=== PATIENT | male | born 1935 | race Caucasian/White ===

== ENCOUNTER 2023-01-24 13:45 | Outpatient (RCR) | payer MEDICARE, SELFPAY | END 2023-04-13 12:42 | disposition home or self-care (01) | PROVIDERS: PCP Family Medicine; Visit Provider Physician Assistant Medical | DX: R26.89 Other abnormalities of gait and mobility (principal); R29.6 Repeated falls; Z51.89 Encounter for other specified aftercare | CPT/HCPCS: 97110; 97112; 97140; 97162 ==

== ENCOUNTER 2024-09-14 07:26 | Outpatient (CLI) | payer MEDICARE, SELFPAY | END 2024-09-14 07:27 | disposition home or self-care (01) | LOC: AMB 09-27 07:31 | PROVIDERS: PCP Family Medicine; Visit Provider Family Medicine | DX: S39.92XA Unspecified injury of lower back, initial encounter (principal); W10.9XXA Fall (on) (from) unspecified stairs and steps, initial encounter; Y92.9 Unspecified place or not applicable | CPT/HCPCS: A0425; A0433 ==

== ENCOUNTER 2024-09-14 08:08 | Emergency (ER) | payer MEDICARE, SELFPAY ==
[2024-09-14] VITALS (24 sets, daily range): BP systolic 88–151; BP diastolic 57–106; PULSE 65–86; RESP 18; TEMP 36.3; O2SAT 84–99; BMI 27.4
--- OUTSIDE RECORDS SUMMARY | 2024-09-14 08:10 | XMS_ITS | Continuity of Care Document ---
Author Name [facility] Organization [facility] Care Team Providers Care Liaison Planner Name Role Phone [facility] Unavailable Unavailable Problems Combined list of problems from Department of Defense and Veterans Affairs facilities. It does not include entries that were removed or entered in error. Problem Status Onset Date Problem Type Date of Resolution Comments Source AAA screen nl Active Condition [facility] Bilat carotid US: neg 10/10 Active Condition [facility] C-scopy outside 12/07 per pt: polyps removed: told me to RTC 3 yr Active Condition Oct 20, 2007 Entered By: JUDE COUGHLIN Comment: Declined referral 2008 Entered By: JUDE COUGHLIN Comment: 10-14 declined referral [facility] Carpal Tunnel Syndrome Active Condition Aug 26, 2006 Entered By: JUDE COUGHLIN Comment: RTMay 2006 Entered By: JUDE COUGHLIN Comment: s/p surg 12-10 [facility] Coronary Artery Disease Active Condition May 22, 2003 Entered By: CASPER DIAS I Comment: s/p stenting in 2009 Entered By: JUDE COUGHLIN Comment: S/P STENTING -2009 [facility] DECLINED ZOSTER VACCINE -2010 Active Condition Oct 13, 2012 Entered By: JUDE COUGHLIN Comment: GOT SHINGLES RASH -2012; rx outside [facility] Degenerative Joint Disease Active Condition Oct 01, 2005 Entered By: JUDE COUGHLIN Comment: seeing outside ortho: s/p injnx x 1 left knee: no helpNov 02, 2006 Entered By: JUDE COUGHLIN Comment: rt wrist DJD: 2-7 Ortho plans surgMay 2006 Entered By: JUDE COUGHLIN Comment: 12-10 left knee US: no maradiaga's cyst;January 27, 2007 Entered By: JUDE COUGHLIN Comment: 01-09: DECLINED referral for knee surgMay 2006 Entered By: JUDE COUGHLIN Comment: RT wrist surg and CTS SURG 2008 Entered By: JUDE COUGHLIN Comment: 2006 Rt wrist fusionFeb 2009 Entered By: JUDE COUGHLIN Comment: 2008: Bilat TKANov 2020 Entered By: JUDE COUGHLIN Comment: Rt CUATE [facility] Depression Active Condition [facility] Disorder of Shoulder Region (SCT [id number]) Active Condition Aug 31, 2017 Entered By: JUDE COUGHLIN Comment: Left shoulder rotator cuff repair outside [facility] DJD, Wrist Active Condition [facility] Hyperlipidemia Active Condition [facility] Insulin Resistance Active Condition [facility] LDL > 100: pt declined further incr in Statin dose Active Condition January 27, 2007 Entered By: JUDE COUGHLIN Comment: 5-07 Pt declined statin increase [facility] Lumbar compression fx 2008: Active Condition Oct 10, 2009 Entered By: JUDE COUGHLIN Comment: Vertebroplasty done outside [facility] 2009 Entered By: JUDE COUGHLIN Comment: DEXA: NORMAL [facility] ONLY [facility] 2011 Active Condition Nov 12, 2011 Entered By: JUDE COUGHLIN Comment: PCP In [facility] in [place]: Dr. Mistry 2011 Entered By: JUDE COUGHLIN Comment: significant care fragmentation [facility] WANTS yearly PSA Active Condition Oct 20, 2007 Entered By: JUDE COUGHLIN Comment: declined rectal 2-08 [facility] Diagnosis: ICD-10-CM H90.3 Sensorineural hearing loss, bilateral Active Diagnosis [facility] Diagnosis: ICD-10-CM Z01.118 Encntr for exam of ears and hearing w oth abnormal findings Active Diagnosis [facility] Medications Combined list of outpatient medications from Department of Defense and [facility] Affairs facilities.Medications provided include 1) outpatient medications from the last 15 months, and 2) patient-reported medications. Medication Details Route Status Patient Instructions Prescription Expires Prescription Number Last Dispense Date Ordering Provider Order Date Order Qty Source ASPIRIN 81MG TAB,EC TAKE ONE TABLET BY MOUTH EVERY DAY ORAL ACTIVE JUDE COUGHLIN 2010 [facility] ECHINACEA CAP/TAB TAKE BY MOUTH QWEEK ORAL ACTIVE JUDE COUGHLIN 2007 [facility] FLAXSEED MISCELLANEO US USE MOUTH QWEEK ORAL ACTIVE JUDE COUGHLIN 2007 [facility] FOLIC ACID 1MG TAB TAKE ONE TABLET BY MOUTH QWEEK ORAL ACTIVE CED,JUDE N 2007 [facility] GARLIC OIL CAP,ORAL TAKE BY MOUTH QWEEK ORAL ACTIVE CED,JUDE N 2007 [facility] MAGNESIUM 70MG TAB,EC TAKE TWO TABLETS BY MOUTH QWEEK ORAL ACTIVE CED,JUDE N 2007 [facility] OXYCODONE TAB TAKE ACTIVE CED,JUDE N 2019 [facility] ZINC GLUCONATE 50MG TAB TAKE ONE TABLET BY MOUTH QWEEK ORAL ACTIVE CED,JUDE N 2007 [facility] Allergies, Adverse Reactions, Alerts Combined list of allergies from Department of [facility] and [facility] Affairs facilities. It does not include entries that were removed or entered in error. Substance Category Reaction Severity Reaction type Status Date Reported Comments Source ACETAMINOPHEN Propensity to adverse reactions to drug (finding) Nausea and vomiting active 7 [facility] ACETAMINOPHEN WITH CODEINE Propensity to adverse reactions to drug (finding) GI REACTION active 3 [facility] MORPHINE Propensity to adverse reactions to drug (finding) Drowsy active 7 [facility] SULFA DRUGS Propensity to adverse reactions to drug (finding) HIVES active 3 [facility] Immunizations Combined list of available immunizations from the Department of [facility] and [facility] facilities. Immunization Series Date Given Administered By Site Reaction Lot Number CVX Code Drug Air Intercept Controller Supervisor Status Comments Source COVID-19 (Synovex), MRNA, LNP-S, PF, 30 MCG/0.3 ML DOSE 3 2020 208 complet ed PRF; [id number]; 2 [facility] COVID-19 (Synovex), MRNA, LNP-S, PF, 30 MCG/0.3 ML DOSE 2 2020 208 complet ed PFR; [id number]; 1 [facility] COVID-19 (Synovex), MRNA, LNP-S, PF, 30 MCG/0.3 ML DOSE 1 2020 208 complet ed PFR; [id number]; 1 [facility] ZOSTER LIVE 2012 121 complet ed [facility] TDAP 2010 115 complet ed [facility] INFLUENZA, UNSPECIFIED FORMULATION 2006 88 complet ed [facility] TD(ADULT) UNSPECIFIED FORMULATION 2002 139 complet ed [facility] Encounters Combined list of: 1) Encounters from Department of Veterans Affairs facilities going back up to thelast 18 months. 2) Encounters from the Department of [facility] facilities going back up to 280 months. Location Location Details Encounter Type Encounter Number Reason For Visit Attending Provider ADM Date DC Date Status Disposition Source [facility] Outpatient Encounter [id number] 06/01 [facility] [place] [facility] Outpatient Encounter [id number] 06/29 [facility] [place] [facility] [place] [id number] Diagnos is: ICD-10- CM Z01.118 Encntr for exam of ears and hearing w oth abnorma l finding s
MAEGAN NUÑEZ 08/07 [facility] [place] [facility] CONFORMITY EVALUATION [id number] Diagnos is: ICD-10- CM H90.3 Sensori neural hearing loss, bilater al
MAEGAN NUÑEZ 09/11 [facility] Social History Combined list of available smoking, tobacco, and other social history from Department of Defense and [facility] facilities. Social History Type Response Date Comment Sourc e Tobacco smoking status NHIS OK-TOBACCO FORMER USER 07/17/2021 [facility] History of tobacco use OK-TOBACCO QUIT 1 5 YRS OR MORE 07/17/2021 [facility] History of tobacco use OK-TOBACCO FORMER USER 08/21/2019 [facility] History of tobacco use FORMER TOBACCO US ER 7Y OR GREATER 08/31/2017 [facility] History of tobacco use FORMER TOBACCO US ER 7Y OR GREATER 08/11/2016 [facility] History of tobacco use FORMER TOBACCO US ER 7Y OR GREATER 09/09/2015 [facility] History of tobacco use FORMER TOBACCO US ER 7Y OR GREATER 12/23/2006 [facility] Advance Directives List of completed, amended, or rescinded Advance Directives on record at Department of [facility] Affairs facilities. An actual copy of the Directive is not included. Date Advance Directive Provider Source 05/22/2003 ADVANCE DIRECTIVE LAURA MCGHEE [facility]
--- OUTSIDE RECORDS SUMMARY | 2024-09-14 08:10 | XMS_ITS | Encounter Summary ---
Author Name [facility] Organization [facility] Address [address] [place] [address] Care Team Providers Care Boat Fueler Name Role Phone JASBIR PARK Primary Care [...] Name Patient's Relationship to Policy Mclaughlin MEDICA [facility] (WNR) MEDICARE ADVANTAGE [facility] (WNR) Sep 05, 2015 [id number] [phone] SHAHLA ZAPATA PATIENT U-CARE OF [facility] (WNR) MEDICARE (M) MEDIC ARE REPLRehana JEFFERSON Vladimir Sep 05, 2019 REPLACE MENT [id number] SHAHLA ZAPATA PATIENT [facility]-C[facility] OF [facility] (WNR) MEDICARE ADVANTAGE [facility] (WNR) Sep 05, 2019 [id number] SHAHLA ZAPATA PATIENT Selected Encounter This section includes the information on record at [place] for the Encounter. Date/Time Encounter Type Encounter [...] hearing w oth abnormal findings JOSEPH NUÑEZ [facility] Aug 07, 2024 01:16 PM SECONDARY Sensorineural hearing loss, bilateral JOSEPH NUÑEZ [facility] Aug 07, 2024 01:16 PM SECONDARY Tinnitus, bilateral JOSEPH NUÑEZ [facility] Plan of Treatment: Future Appointments (+ 6 months) and Future Tests (+/- 45 days) The Plan of Treatment section includes future care activities for the patient from all [place] [facility]. This section includes future appointments and future orders which are active, pending or scheduled. Future Appointments This section includes appointments that were scheduled to occur 6 months from the date of the Encounter, up to a maximum of 20 appointments. The data comes from all [facility] facilities. Appointment Date/Time Appointment Type Appointme nt Facility Name Sep 11, 2024 12:30 PM AMBULATORY - SURGERY [facility] Social History: Smoking Status (Most current) and Tobacco Use (All prior to encounter date) This section includes the most current, and the historical, smoking and tobacco- related health factors from the [place] facility where the Encounter took place. Current Smoking Status This section includes the most current smoking, or tobacco-related health factor, from the [place] facility where the Encounter took place. Date/Time Current Smoking Status Comment Facil ity Jul 17, 2021 08:15 AM VA-TOBACCO QUIT 15 YRS OR MORE [facility] Tobacco Use History This section includes a history of the smoking, or tobacco-related health factors, that were collected on or before the date of the Encounter. The data comes from the [place] facility where the Encounter took place. Date/Time Smoking Status/Tobacco Use Comment F acility Jul 17, 2021 08:15 AM VA-TOBACCO QUIT 15 YRS OR MORE [facility] Aug 21, 2019 04:14 PM VA-TOBACCO FORMER USER [facility] Aug 21, 2019 04:14 PM VA-TOBACCO QUIT 15 YRS OR MORE [facility] Aug 31, 2017 09:16 AM FORMER TOBACCO USER 7Y OR GREATE R [facility] Aug 11, 2016 08:47 AM FORMER TOBACCO USER 7Y OR GREATE R [facility] Sep 09, 2015 08:56 AM FORMER TOBACCO USER 7Y OR GREATE R [facility] Dec 23, 2006 12:28 PM FORMER TOBACCO USER 7Y OR GREATE R [facility] Advance Directives: All historical and current Section Date Range: From patient's date of to the date document was created. This section includes ALL of a patient's completed or amended [place] Advance and Rescinded Directives. The entries below indicate that a directive exists for the patient, but an actual copy is not included with this document. The data comes from all [place] facilities. Date Advance Directives Provider Source May 22, 2003 ADVANCE DIRECTIVE LAURA MCGHEE [facility] Encounter Notes: All associated encounter notes [...] EVALUATION AND HEARING AID SELECTION, 60 MINUTES: was seen in the clinic today for a comprehensive audiologic evaluation, hearing aid selection, hearing aid service, and counseling. LOCATION OF VISIT (ROOM NUMBER): [facility] The was last seen in this clinic on 03/22/2020. The is NOT Service Connected for Hearing Loss / Tinnitus. Le[place]worth was accompanied by his son, Carlitos. The currently wears the following hearing aids: Hearing aids right/left; Date Fit: Mar Make: PHONAK Model: AUDEO M90 RT LYLA Serial #: [id number] Straightener Hand/Slim Tube Size: Dome/Earmold: SMALL POWER HISTORY: seen with a history of asymmetric sensorineural hearing loss and tinnitus. He reported a decrease in hearing. He denied any change in tinnitus. He denied other otologic symptoms. Patient is eligible for new hearing aids. Le[place]worth stated the current hearing aids are not [...] headphones Reliability: Good RIGHT EAR (Hz) [phone] 6248 1500 2000 3000 4000 6000 8000 Air: See Audiogram Display under Tools / AUDIOLOGY / ROES or see RAQUEL Database Bone: See Audiogram Display under Tools / AUDIOLOGY / ROES or see RAQUEL Database LEFT EAR (Hz) 250 195 694 5856 1500 2000 3000 4000 6000 8000 Air: See Audiogram Display under Tools / AUDIOLOGY / ROES or see RAQUEL Database Bone: See Audiogram Display under Tools / AUDIOLOGY / ROES or see RAQUEL Database - All thresholds are in dB HL * = Masked Threshold SRT: Spondees Right: 35 dB HL Left: 35 dB HL Pure tone results were consistent with speech reception interviewer thresholds. WORD RECOGNITION: / -22 word list RIGHT EAR: 40% Level: 90* dB LEFT EAR: 28% Level: 95* dB SUMMARY: Hearing is somewhat worse as compared to the last examination. RIGHT EAR: Mild sloping to profound sensorineural hearing loss with poor word recognition. LEFT EAR: Mild sloping to profound sensorineural hearing loss with poor word recognition. DISCUSSION: - Results were reviewed with the patient. - Leavenworth continues to be a good candidate for hearing aid use. - Leavenworth has hearing loss that interferes with or restricts communication to the extent that it affects their active participation in the provision of health care services as determined by the lion tamer. AMPLIFICATION: - Different styles/technologies were reviewed with consideration given to veterans listening situations and lifestyle needs. is interested in pursuing similar hearing aids [...] procedure, AU. - Hearing aids ordered: Phonak Auro Mira Energyeo I90-R LYLA hearing aids (champagne, Size 3xM receivers, canal cShells, AOVs, Wax traps, removal strings) were selected and ordered today. - Accessories ordered: TV Connector PLAN: - will be scheduled for a 60-minute hearing aid fitting appointment. Recommended bring his hearing aids to this appointment to have them checked. - Monitor hearing for increase in asymmetry of hearing loss and/or word recognition scores. If otologic symptoms arise or asymmetry increases, ENT referral may be warranted at this time. - PATIENT IS IN AGREEMENT WITH THIS PLAN. /jamison/ MAEGAN NUÑEZ CHIEF LIBRARIAN BRANCH Signed: 08/07/2024 13:31 MAEGAN NUÑEZ [facility]
--- OUTSIDE RECORDS SUMMARY | 2024-09-14 08:10 | XMS_ITS | Encounter Summary ---
Author Name [facility] Address [address] [place] [id number] Care Team Providers Care Portrait Consultant Name Role Phone JASBIR PARK Primary Care [...] Policy Mclaughlin MEDICA [facility] (WNR) MEDICARE ADVANTAGE [facility] (WNR) Sep 05, 2015 [id number] [phone] SHAHLA ZAPATA PATIENT U-CARE OF [facility] (WNR) MEDICARE (M) MEDIC ARE NI [place] Sep 05, 2019 REPLACE MENT [id number] [phone] SHAHLA ZAPATA PATIENT U-CARE OF [facility] (WNR) MEDICARE ADVANTAGE [facility] (WNR) Sep 05, 2019 [id number] [phone] SHAHLA ZAPATA PATIENT Selected Encounter This section includes the information on record at [place] for the Encounter. Date/Time Encounter Type Encounter [...] PRIMARY Sensorineural hearing loss, bilateral JOSEPH NUÑEZ [facility] Sep 11, 2024 01:02 PM SECONDARY Encounter for fitting and adjustment of hearing aid JOSEPH NUÑEZ [facility] Sep 11, 2024 01:02 PM SECONDARY Tinnitus, bilateral JOSEPH NUÑEZ [facility] Social History: Smoking Status (Most current) and Tobacco Use (All prior to encounter date) This section includes the most current, and the historical, smoking and tobacco- related health factors from the [place] facility where the Encounter took place. Current Smoking Status This section includes the most current smoking, or tobacco-related health factor, from the [place] facility where the Encounter took place. Date/Time Current Smoking Status Comment Facil ity Jul 17, 2021 08:15 AM [place]-TOBACCO QUIT 15 YRS OR MORE [facility] Tobacco Use History This section includes a history of the smoking, or tobacco-related health factors, that were collected on or before the date of the Encounter. The data comes from the [place] facility where the Encounter took place. Date/Time Smoking Status/Tobacco Use Comment F acility Jul 17, 2021 08:15 AM VA-TOBACCO QUIT 15 YRS OR MORE [facility] Aug 21, 2019 04:14 PM VA-TOBACCO FORMER USER [facility] Aug 21, 2019 04:14 PM [place]-TOBACCO QUIT 15 YRS OR MORE [facility] Aug 31, 2017 09:16 AM FORMER TOBACCO USER 7Y OR GREATE R [facility] Aug 11, 2016 08:47 AM FORMER TOBACCO USER 7Y OR GREATE R [facility] Sep 09, 2015 08:56 AM FORMER TOBACCO USER 7Y OR GREATE R [facility] Dec 23, 2006 12:28 PM FORMER TOBACCO USER 7Y OR GREATE R [facility] Advance Directives: All historical and current Section Date Range: From patient's date of to the date document was created. This section includes ALL of a patient's completed or amended [place] Advance and Rescinded Directives. The entries below indicate that a directive exists for the patient, but an actual copy is not included with this document. The data comes from all [facility]. Date Advance Directives Provider Source May 22, 2003 ADVANCE DIRECTIVE LAURA MCGHEE [facility] Encounter Notes: All associated encounter notes This [...] AIDS (Right/Left) fit: 09/11/2024 Make: Phonak Model: Chicisimoeo I90-R LYLA Serial Numbers R/L: [id number] / [id number] Senior Estimator/Slim Tube Size: 3M Dome/Earmold: canal cShells ACCESSORIES: TV Connector OTOSCOPY: Both Ears: Free of excessive cerumen. Normal anatomy bilaterally ACTION: Hearing aid(s) are a good physical fit. Feedback test was completed and feedback senior product development manager was activated. Hearing aid(s) were programmed [...] were considered while adjusting the hearing aid(s). Kotlik reported good sound quality and equal balance between ears after adjustments were made. reported a comfortable fit. demonstrated understanding of the new aid(s) and was able to insert the hearing aid(s) appropriately, as well as manipulate the volume control and charging unit. Indicator tones were demonstrated for . Volume control enabled- Synchronized Program button enabled Accessories were paired to the hearing aid(s). Kotlik was educated and counseled on use and features of the device(s) as well as how to connect them. The device(s) were demonstrated in the office to ensure both device functionality and understanding. Kotlik does not want to connect to a cell phone. Kotlik was counseled (30 minutes) regarding: -Full-time hearing aid use and acclimating to amplification -Realistic expectations for hearing aid use -Appropriate communication strategies -How to charge the hearing aids -Location and operation of all controls -Proper care and maintenance -Protecting hearing in high noise levels -Warning about battery ingestion -[facility] and Call Center contact information and services, including the trial period. Prognosis for success is good, given the Veterans response to the hearing aid(s). Hearing aid(s) were issued and supplies were mailed. was provided with a copy of [place] issuance form 2477b. PLAN: Kotlik will return to clinic for service as needed. Patient is in agreement with this plan. /jamison/ MAEGAN NUÑEZ CLIENT SUCCESS DIRECTOR Signed: 09/11/2024 13:02 MAEGAN NUÑEZ [facility]
--- NOTE | 2024-09-14 08:29 | CRLHL7_ITS ---
For Patients: As a result of the Century Cures Act, medical imaging exams and procedure reports are released immediately into your electronic medical record. You may view this report before your referring provider. If you have questions, please contact your health care provider. INDICATION: Fall 1 week ago. TECHNIQUE: CT cervical spine without contrast. COMPARISON: CT cervical spine dated 12/03/2018. FINDINGS: Vertebrae: Alignment is normal. There are no fractures or suspicious bony lesions. Discs and facet joints: There are degenerative disc changes most severe at nd C6-7. There are multilevel degenerative changes in the facets. Extraspinal findings: Partially redemonstrated markedly enlarged left thyroid lobe. IMPRESSION: 1. No sign of acute injury. 2. Multilevel degenerative spondylosis. 3. Redemonstrated markedly enlarged left thyroid lobe. If not previously performed, consider further evaluation with a nonemergent outpatient thyroid ultrasound. Please note that all CT scans at this facility use dose modulation, iterative reconstruction, and/or weight-based dosing when appropriate to reduce radiation dose to as low as reasonably achievable. Dictated by Colt Sutherland MD @ 09/14/2024 9:58:21 AM (Electronically Signed)
--- NOTE | 2024-09-14 08:29 | CRLHL7_ITS ---
For Patients: As a result of the Century Cures Act, medical imaging exams and procedure reports are released immediately into your electronic medical record. You may view this report before your referring provider. If you have questions, please contact your health care provider. INDICATION: Fall 1 week ago. TECHNIQUE: Head CT without contrast. COMPARISON: CT brain dated 12/03/2018. FINDINGS: Moderate diffuse parenchymal volume loss with commensurate ex vacuo dilatation of the ventricles and sulci. There are nonspecific low attenuation white matter changes consistent with chronic microvascular disease. No sign of mass, hemorrhage, or midline shift. Skull base and calvarium: The visualized paranasal sinuses and mastoid air cells demonstrate no acute or significant findings. The visualized orbits are grossly unremarkable. No evident calvarial fractures, allowing for mild motion degradation. Mild scattered scalp swelling. IMPRESSION: No acute findings. Please note that all CT scans at this facility use dose modulation, iterative reconstruction, and/or weight-based dosing when appropriate to reduce radiation dose to as low as reasonably achievable. Dictated by Colt Sutherland MD @ 09/14/2024 9:52:28 AM (Electronically Signed)
--- NOTE | 2024-09-14 08:29 | CRLHL7_ITS ---
For Patients: As a result of the Century Cures Act, medical imaging exams and procedure reports are released immediately into your electronic medical record. You may view this report before your referring provider. If you have questions, please contact your health care provider. INDICATION: Fall 1 week ago TECHNIQUE: CT chest, abdomen and pelvis acquired without contrast. COMPARISON: None. FINDINGS: CHEST: Supraclavicular: Heterogeneous left thyroid nodule measuring 3.7 centimeters (01/16). Cardiovascular structures: Heart size is normal. Superior trailer vessel coronary artery calcification. Aortic annular and mitral annular calcification. Thoracic aorta and main pulmonary artery are normal in caliber. Atherosclerosis of the aorta. Mediastinum and gerson: No mass or adenopathy. Lungs and pleura: Bibasilar atelectasis. No pneumothorax or pleural effusions. Chest wall and axilla: No mass or adenopathy. Bones: Age-indeterminate split fracture of T12. 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 Subacute nondisplaced fractures of the left anterior 2nd, 3rd, 4th, 5th ribs. Deformity of the left clavicular head likely related to prior trauma. Suture anchors in the left humeral head. The humeral head is high-riding and abuts the acromion, consistent with underlying rotator cuff tendinosis. 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 ABDOMEN AND PELVIS: Liver: Unremarkable. Gallbladder and bile ducts: Unremarkable. Pancreas: Unremarkable. Spleen: Unremarkable. Adrenal glands: Unremarkable. Kidneys: Bilateral renal cysts and subcentimeter hypodense lesions, likely cysts. GI tract: No obstruction. Colonic diverticulosis without diverticulitis. Normal appendix. Vascular structures: Moderate atherosclerosis of the aorta and branch vessels. Lymph nodes: Unremarkable. Miscellaneous: Unremarkable. No free air or significant free fluid. Pelvic Organs: Unremarkable. Bones: DISH. Comminuted fracture of the L3 superior endplate. Sequela of L2 vertebroplasty. Partial fusion of the left SI joint. Right total hip arthroplasty. Deformity of the right superior pubic ramus likely related to remote fracture. IMPRESSION: Incomplete burst fracture of L3 (AO spine A3) and split fracture of T12 (AO spine A2). Subacute fractures of the left anterior 2nd-5th ribs. Heterogeneous left thyroid nodule measuring 3.7 centimeters. Consider further evaluation with thyroid ultrasound. Please note that all CT scans at this facility use dose modulation, iterative reconstruction, and/or weight-based dosing when appropriate to reduce radiation dose to as low as reasonably achievable. Dictated by Carlita Lafleur MD @ 09/14/2024 10:08:29 AM (Electronically Signed)
--- NOTE | 2024-09-14 08:31 | ED_ITS ---
HPI - Fall General Chief Complaint: Fall/Minor Trauma Stated Complaint: fall Time Seen by Provider: 09/14/24 08:20 History of Present Illness HPI Narrative: Patient is a E 89-year-old gentleman who is going up the stairs at home today when he fell backwards. He tumbled down the stairs numbering approximately 15. He was unable to get himself up in his pain in his pelvis and low back. He is not certain whether he struck his head or lost consciousness. His was present and found him to be lucid at the scene and not bleeding. Patient has had no nausea no vomiting his pain is mild. He was brought in by EMS and has otherwise been in his usual state of health. Review of his record shows he does not appear to take anticoagulation or anti-platelet agents. Related Data Home Medications ?Medication ?Instructions ?Recorded ?Confirmed atorvastatin 40 mg tablet 40 mg PO QPM 09/14/24 09/14/24 hydrochlorothiazide 12.5 mg tablet 12.5 mg PO DAILY 09/14/24 09/14/24 lisinopril 20 mg tablet 20 mg PO DAILY 09/14/24 09/14/24 Allergies Allergy/AdvReac Type Severity Reaction Status Date / Time No Known Drug Allergies Allergy Verified 09/14/24 08:22 Review of Systems Status of ROS: Reports: 10 or more systems reviewed and unremarkable except as noted in History and below [facility] Medical History Hyperlipidemia ?E78.5 - Hyperlipidemia, unspecified (ICD-10) Hypertension ?I10 - Essential (primary) hypertension (ICD-10) Exam Narrative: Exam Narrative: EXAM Primary survey Airway is open Breathing is nonlabored Circulation is intact No signs of a me disability Back exam without pain to palpation. GENERAL: Patient appears comfortable and well. EYES: No scleral icterus. LYMPH: No supraclavicular or cervical lymphadenopathy. SKIN: Visible skin seen during exam normal or with benign process only. EXT: No dependent lower extremity pedal edema. HEART: Regular rate and rhythm with no murmurs, rubs, or gallops. LUNGS: Clear to auscultation bilaterally with no crackles or wheezes. ABD: Soft, non tender, non distended. PSYCH: Good eye contact, speech is not pressured. Musculoskeletal patient moves all extremities no pain to palpation. No bruising or ecchymosis. Const: Vital Signs, click to edit/add: Vital Signs - 24 hr 09/14/24 08:14 09/14/24 08:39 09/14/24 08:52 Temperature 97.3 F L Pulse Rate 86 Pulse Rate [Right Pulse Oximeter] 86 Respiratory Rate 18 Blood Pressure 151/106 H Blood Pressure [Ri ght Upper Arm] 122/65 Pulse Oximetry 97 85 L Oxygen Delivery Me thod Room Air Oxygen Flow Rate 09/14/24 09:02 09/14/24 09:03 09/14/24 09:06 Temperature Pulse Rate 80 84 84 Pulse Rate [Right Pulse Oximeter] Respiratory Rate Blood Pressure Blood Pressure [Ri ght Upper Arm] Pulse Oximetry 94 95 95 Oxygen Delivery Me thod Oxygen Flow Rate 09/14/24 09:08 09/14/24 09:09 09/14/24 09:27 Temperature Pulse Rate 83 80 79 Pulse Rate [Right Pulse Oximeter] Respiratory Rate Blood Pressure 101/68 Blood Pressure [Ri ght Upper Arm] Pulse Oximetry 92 92 84 L Oxygen Delivery Me thod Nasal Cannula Oxygen Flow Rate 1 09/14/24 09:30 09/14/24 09:31 09/14/24 09:32 Temperature Pulse Rate 77 80 80 Pulse Rate [Right Pulse Oximeter] Respiratory Rate Blood Pressure 97/68 112/67 Blood Pressure [Ri ght Upper Arm] Pulse Oximetry 93 96 93 Oxygen Delivery Me thod Nasal Cannula Nasal Cannula Nasal Cannula Oxygen Flow Rate 1 1 1 09/14/24 09:42 09/14/24 09:45 09/14/24 09:52 Temperature Pulse Rate 79 74 74 Pulse Rate [Right Pulse Oximeter] Respiratory Rate Blood Pressure 104/64 109/58 L Blood Pressure [Ri ght Upper Arm] Pulse Oximetry 89 95 93 Oxygen Delivery Me thod Nasal Cannula Nasal Cannula Nasal Cannula Oxygen Flow Rate 2 2 2 09/14/24 10:00 09/14/24 10:02 09/14/24 10:04 Temperature Pulse Rate 69 71 70 Pulse Rate [Right Pulse Oximeter] Respiratory Rate Blood Pressure 88/57 L 107/64 Blood Pressure [Ri ght Upper Arm] Pulse Oximetry 97 98 97 Oxygen Delivery Me thod Nasal Cannula Nasal Cannula Nasal Cannula Oxygen Flow Rate 2 2 2 Course Course ED Course: Patient is a 89-year-old gentleman who fell down the stairs this morning he presents to the ER where he is complaining of low back pain. CT head neck chest abdomen pelvis pending. CBC CMP UA EKG also pending. Vital Signs Vital signs: Initial Vital Signs Temperature 97.3 F L 09/14/24 08:14 Temperature Source Temporal Artery Scan 09/14/24 08:14 Pulse Rate 86 09/14/24 08:14 Pulse Rhythm Regular 09/14/24 08:14 Respiratory Rate 18 09/14/24 08:14 Blood Pressure 122/65 09/14/24 08:14 Blood Pressure Mean 84 09/14/24 08:14 Blood Pressure Position Supine 09/14/24 08:14 Pulse Oximetry 97 09/14/24 08:14 Oxygen Delivery Method Room Air 09/14/24 08:14 Vital Signs Temperature 97.3 F L 09/14/24 08:14 Pulse Rate 86 09/14/24 08:14 Respiratory Rate 18 09/14/24 08:14 Blood Pressure 122/65 09/14/24 08:14 Pulse Oximetry 97 09/14/24 08:14 Oxygen Delivery Method Room Air 09/14/24 08:14 Temperature 97.3 F L 09/14/24 08:14 Pulse Rate 70 09/14/24 10:04 Respiratory Rate 18 09/14/24 08:14 Blood Pressure 107/64 09/14/24 10:04 Pulse Oximetry 97 09/14/24 10:04 Oxygen Delivery Method Nasal Cannula 09/14/24 10:04 Oxygen Flow Rate 2 09/14/24 10:04 Medications Administered Medications: Discontinued Medications Generic Name Dose Route Start Last Admin Trade Name Freq PRN Reason Stop Dose Admin Hydromorphone HCl 0.5 mg 09/14/24 08:54 09/14/24 08:57 Hydromorphone 0.5 Mg/0.5 Ml Inj IVP 09/14/24 08:55 0.5 mg ONCE ONE Administration MDM - Fall MDM Narrative Medical decision making narrative: Patient is a 9-year-old gentleman who fell down the stairs today. He has pain in his back but no other significant pain. I did do CT head and neck both which were negative. He had a CT of his chest abdomen pelvis showing L3 burst fracture a T12 split fracture and left anterior rib fractures on the ribs 2 through 5. Chronic thyroid nodule also noted. At this time I did immediately call [facility] and discuss the case and patient will be transferred for further evaluation and treatment. He has remained stable during his time with us. He is now resting comfortably. I will given him 0.5 mg of Dilaudid for pain. Lab Data Labs: Lab Results 09/14/24 Range/Units 08:42 WBC 8.58 (4.50-11.00) K/uL RBC 4.48 (4.30-5.90) m/uL Hgb 14.0 (13.5-17.5) gm/dL Hct 42.2 (37.0-53.0) % MCV 94 (80-100) fL MCH 31 (26-34) pg MCHC 33 (32-36) gm/dL RDW Coeff of Teresa 13.0 (11.5-15.5) % Plt Count 234 (140-440) K/uL Neut % (Auto) 73.6 H (42.0-72.0) % Lymph % (Auto) 11.3 L (20-44) % Benson % (Auto) 12.9 H (0.0-11.0) % Eos % (Auto) 1.5 (0.0-7.0) % Baso % (Auto) 0.5 (0.0-3.0) % Neut # (Auto) 6.30 (1.7-7.0) K/uL Lymph # (Auto) 1.00 (0.90-2.90) K/uL Benson # (Auto) 1.10 H (0.00-0.90) K/UL Eos # (Auto) 0.13 (0.00-0.50) K/uL Baso # (Auto) 0.04 (0.00-0.30) K/uL Abs Immat Gran (auto) 0.02 (0.00-0.30) K/uL Imm/Tot Granulo (auto) 0.2 % Sodium 136 (135-149) mmol/L Potassium 3.8 (3.6-5.1) mmol/L Chloride 100 (96-114) mmol/L Carbon Dioxide 30 (20-32) mmol/L Anion Gap 6 L (7-15) mEq/L BUN 29 (7-30) mg/dL Creatinine 0.9 (0.5-1.5) mg/dL Estimated Creat Clear 48.66 Estimated GFR 83 ml/min Glucose 122 H (60-115) mg/dL Calcium 9.4 (8.4-10.6) mg/dL Total Bilirubin 0.9 (0.1-1.5) mg/dL AST 63 H (12-35) U/L ALT 31 (4-50) U/L Alkaline Phosphatase 70 (40-150) U/L Total Protein 6.9 (6.0-8.3) g/dL Albumin 4.1 (3.3-5.0) g/dL Discharge Plan Discharge Clinical Impression: Fall Patient Disposition: [facility] Discharge Location: [facility] Condition: Stable Activity Level: Other Discharge Diet: Other Prescriptions: No Action atorvastatin 40 mg tablet 40 mg PO QPM lisinopril 20 mg tablet 20 mg PO DAILY hydrochlorothiazide 12.5 mg tablet 12.5 mg PO DAILY Follow Up/Referrals: Sherif Valladares MD [Primary Care Provider] -
[2024-09-14 08:47] LABS: Basophils Absolute Auto 0.04 K/uL (0.00-0.30); Basophils Percent Auto 0.5 % (0.0-3.0); Eosinophils Absolute Auto 0.13 K/uL (0.00-0.50); Eosinophils Percent Auto 1.5 % (0.0-7.0); Hematocrit 42.2 % (37.0-53.0); Immature Granulocytes Abs Auto 0.02 K/uL (0.00-0.30); Immature Granulocytes Pct Auto 0.2 %; Lymphocytes Percent Auto 11.3 % (20-44); Mean Corpuscular HGB Conc 33 gm/dL (32-36); Mean Corpuscular Hemoglobin 31 pg (26-34); Mean Corpuscular Volume 94 fL (80-100); Monocytes Percent Auto 12.9 % (0.0-11.0); Neutrophils Percent Auto 73.6 % (42.0-72.0); Platelet Count* 234 K/uL (140-440); Red Blood Count 4.48 m/uL (4.30-5.90); White Blood Count* 8.58 K/uL (4.50-11.00)
[2024-09-14] MEDS: HYDROmorphone 0.5 mg/0.5 ml inj IVP (08:57)
[2024-09-14 09:01] LABS: Albumin* 4.1 g/dL (3.3-5.0); Chloride* 100 mmol/L (96-114); Potassium* 3.8 mmol/L (3.6-5.1); Sodium* 136 mmol/L (135-149)
[2024-09-14 09:04] LABS: Alanine Aminotransferase* 31 U/L (4-50); Alkaline Phosphatase* 70 U/L (40-150); Anion Gap 6 mEq/L (7-15); Aspartate Amino Transferase* 63 U/L (12-35); Bilirubin Total* 0.9 mg/dL (0.1-1.5); Blood Urea Nitrogen* 29 mg/dL (7-30); Calcium* 9.4 mg/dL (8.4-10.6); Carbon Dioxide* 30 mmol/L (20-32); Creatinine* 0.9 mg/dL (0.5-1.5); Est. Creatinine Clearance* 48.66; Estimated Glomerular Filt Rate 83 ml/min; Glucose* 122 mg/dL (60-115); Total Protein* 6.9 g/dL (6.0-8.3)
[2024-09-14 09:07] LABS: Slide Review Reflex No
--- OUTSIDE RECORDS SUMMARY | 2024-09-14 09:07 | XMS_ITS | Continuity of Care Document ---
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 It does not include entries that were removed or entered in error. Problem Status Onset Date Problem Type Date of Resolution Comments Source AAA screen nl Active Condition [facility] Bilat carotid US: neg 10/[address] [facility] C-scopy outside 12/07 per pt: polyps removed: told me to RTC 3 yr Active Condition Oct 20, 2007 Entered By: JUDE COUGHLIN Comment: Declined referral 2008 Entered By: JUDE COUGHLIN Comment: 10-[address] [facility] Carpal Tunnel Syndrome Active Condition Aug 26, 2006 Entered By: JUDE COUGHLIN Comment: RTMay 2006 Entered By: JUDE COUGHLIN Comment: s/p surg 12-10 [facility] Coronary Artery Disease Active Condition May 22, 2003 Entered By: CASPER DIAS I Comment: s/p stenting in 2009 Entered By: JUDE COUGHLIN Comment: S/P STENTING -2009 [facility] DECLINED ZOSTER VACCINE -2010 Active Condition Oct 13, 2012 Entered By: JUDE COUGHLIN Comment: GOT SHINGLES RASH -2012; rx outside [facility] Degenerative Joint Disease Active Condition Oct 01, [...] Entered By: JUDE COUGHLIN Comment: Rt CUATE [facility] Depression Active Condition 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 Hyperlipidemia Active Condition [facility] Insulin Resistance Active Condition [facility] LDL > 100: pt declined further incr in Statin dose Active Condition January 27, 2007 Entered By: JUDE COUGHLIN Comment: 5-07 Pt declined statin increase [facility] Lumbar compression fx 2008: Active Condition Oct 10, 2009 Entered By: JUDE COUGHLIN Comment: Vertebroplasty done outside [facility] 2009 Entered By: JUDE COUGHLIN Comment: DEXA: NORMAL [facility] ONLY [facility] 2011 Active Condition Nov 12, 2011 Entered By: JDUE COUGHLIN Comment: PCP In [facility] in [place]: Dr. Mistry 2011 Entered By: JUDE COUGHLIN Comment: significant care fragmentation [facility] WANTS yearly PSA Active Condition Oct 20, 2007 Entered By: JUDE COUGHLIN Comment: declined rectal 2-08 [facility] Diagnosis: ICD-10-CM H90.3 Sensorineural hearing loss, bilateral Active Diagnosis [facility] Diagnosis: ICD-10-CM Z01.118 Encntr for exam of ears and hearing w oth abnormal findings Active Diagnosis [facility] Medications Combined list of outpatient medications from Department of Defense and [facility] Affairs facilities.Medications provided include 1) outpatient medications from the last 15 months, and 2) patient-reported medications. Medication Details Route Status Patient Instructions Prescription Expires Prescription Number Last Dispense Date Ordering Provider Order Date Order Qty Source ASPIRIN 81MG TAB,EC TAKE ONE TABLET BY MOUTH EVERY DAY ORAL ACTIVE JUDE COUGHLIN 2010 [facility] ECHINACEA CAP/TAB TAKE BY MOUTH QWEEK ORAL ACTIVE JUDE COUGHLIN 2007 [facility] FLAXSEED MISCELLANEO US USE MOUTH QWEEK ORAL ACTIVE JUDE COUGHLIN 2007 [facility] FOLIC ACID 1MG TAB TAKE ONE TABLET BY MOUTH QWEEK ORAL ACTIVE CED,JUDE N 2007 [facility] GARLIC OIL CAP,ORAL TAKE BY MOUTH QWEEK ORAL ACTIVE CED,JUED N 2007 [facility] MAGNESIUM 70MG TAB,EC TAKE TWO TABLETS BY MOUTH QWEEK ORAL ACTIVE CED,JUDE N 2007 [facility] OXYCODONE TAB TAKE ACTIVE CED,JUDE N 2019 [facility] ZINC GLUCONATE 50MG TAB TAKE ONE TABLET BY MOUTH QWEEK ORAL ACTIVE CED,JUDE N 2007 [facility] Allergies, Adverse Reactions, Alerts Combined list of allergies from Department of [facility] and [facility] facilities. It does not include entries that were removed or entered in error. Substance Category Reaction Severity Reaction type Status Date Reported Comments Source ACETAMINOPHEN Propensity to adverse reactions to drug (finding) Nausea and vomiting active 7 [facility] ACETAMINOPHEN WITH CODEINE Propensity to adverse reactions to drug (finding) GI REACTION active 3 [facility] MORPHINE Propensity to adverse reactions to drug (finding) Drowsy active 7 [facility] SULFA DRUGS Propensity to adverse reactions to drug (finding) HIVES active 3 [facility] Immunizations Combined list of available immunizations from the Department of [facility] and [facility] facilities. Immunization Series Date Given Administered By Site Reaction Lot Number CVX Code Drug Blending Line Attendant Status Comments Source COVID-19 ([facility]), MRNA, LNP-S, PF, 30 MCG/0.3 ML DOSE 3 2020 208 complet ed PRF; [id number]; 2 [facility] COVID-19 ([facility]), MRNA, LNP-S, PF, 30 MCG/0.3 ML DOSE 2 2020 208 complet ed PFR; [id number]; 1 [facility] COVID-19 ([facility]), MRNA, LNP-S, PF, 30 MCG/0.3 ML DOSE 1 2020 208 complet ed PFR; [id number]; 1 [facility] ZOSTER LIVE 2012 121 complet ed [facility] TDAP 2010 115 complet ed [facility] INFLUENZA, UNSPECIFIED FORMULATION 2006 88 complet ed [facility] TD(ADULT) UNSPECIFIED FORMULATION 2002 139 complet ed [facility] Encounters Combined list of: 1) Encounters from Department of Veterans Affairs facilities going back up to thelast 18 months. 2) Encounters from the Department of [facility] facilities going back up to 280 months. Location Location Details Encounter Type Encounter Number Reason For Visit Attending Provider ADM Date DC Date Status Disposition Source [facility] Outpatient Encounter [id number] 06/01 [facility] [place] [facility] Outpatient Encounter [id number] 06/29 [facility] [place] [facility] [place] [place] [id number] Diagnos is: ICD-10- CM Z01.118 Encntr for exam of ears and hearing w oth abnorma l finding s
MAEGAN NUÑEZ 08/07 [facility] [place] [facility] CONFORMITY EVALUATION [id number] Diagnos is: ICD-10- CM H90.3 Sensori neural hearing loss, bilater al
MAEGAN NUÑEZ 09/11 [facility] Social History Combined list of available smoking, tobacco, and other social history from Department of Defense and [facility] facilities. Social History Type Response Date Comment Sourc e Tobacco smoking status NHIS [place] FORMER USER 07/17/2021 [facility] History of tobacco use [place]-TOBACCO QUIT 1 5 YRS OR MORE 07/17/2021 [facility] History of tobacco use [place] FORMER USER 08/21/2019 [facility] History of tobacco use FORMER TOBACCO US ER 7Y OR GREATER 08/31/2017 [facility] History of tobacco use FORMER TOBACCO US ER 7Y OR GREATER 08/11/2016 [facility] History of tobacco use FORMER TOBACCO US ER 7Y OR GREATER 09/09/2015 [facility] History of tobacco use FORMER TOBACCO US ER 7Y OR GREATER 12/23/2006 [facility] Advance Directives List of completed, amended, or rescinded Advance Directives on record at Department of [facility] facilities. An actual copy of the Directive is not included. Date Advance Directive Provider Source 05/22/2003 ADVANCE DIRECTIVE LAURA MCGHEE [facility]
--- NOTE | 2024-09-14 11:06 | ED.NURSE ---
Nurse report given to Moy at [facility]. Pt en route with EMS.
== END 2024-09-14 10:45 | disposition short-term general hospital (02) ==
PROVIDERS: Emergency Provider Internal Medicine; PCP Family Medicine
DX: S32.031A Stable burst fracture of third lumbar vertebra, initial encounter for closed fracture (principal); S22.088A Other fracture of T11-T12 vertebra, initial encounter for closed fracture; S22.42XA Multiple fractures of ribs, left side, initial encounter for closed fracture; W10.9XXA Fall (on) (from) unspecified stairs and steps, initial encounter
CPT/HCPCS: 36415; 70450; 71250; 72125; 74176; 80053; 81003; 85025; 96374; 99284; 99285; J1171

== ENCOUNTER 2024-09-14 10:43 | Outpatient (CLI) | payer MEDICARE, SELFPAY | END 2024-09-14 10:44 | disposition home or self-care (01) | LOC: AMB 09-27 07:36 | PROVIDERS: PCP Family Medicine; Visit Provider Internal Medicine | DX: S32.039A Unspecified fracture of third lumbar vertebra, initial encounter for closed fracture (principal); S22.42XA Multiple fractures of ribs, left side, initial encounter for closed fracture; W10.9XXA Fall (on) (from) unspecified stairs and steps, initial encounter; Y92.9 Unspecified place or not applicable | CPT/HCPCS: A0425; A0427 ==

== ENCOUNTER 2025-03-05 11:45 | Outpatient (REF) | payer MEDICARE, SELFPAY ==
--- OUTSIDE RECORDS SUMMARY | 2024-08-07 07:30 | XMS_ITS | Encounter Summary ---
Author Name [facility] [place] Organization [place] Address [address] [place] [id number] Care Team Providers Care Clinical Documentation Clerk Name Role Phone JASBIR PARK Primary Care Provider Unavailabl e Insurance Providers: All historical and current Section Date Range: From patient's date of to the date document was created. This section includes the names of all active insurance providers for the patient. Insurance Provider Type of Coverage Plan Name Start of Policy Coverage End of Policy Coverage Group Number Member ID Insurance Provider's Telephone Number Policy Mclaughlin's Name Patient's Relationship to Policy Mclaughlin MEDICA [facility] (WNR) MEDICARE ADVANTAGE [facility] (WNR) Sep 05, 2015 [id number] [phone] SHAHLA ZAPATA PATIENT [facility] (WNR) MEDICARE ([place]) MEDIC ARE REPLRehana JEFFERSON Vladimir Sep 05, 2019 REPLACE MENT [id number] SHAHLA ZAPATA PATIENT [facility] (WNR) MEDICARE ADVANTAGE [facility] (WNR) Sep 05, 2019 [id number] [phone] SHAHLA ZAPATA PATIENT Selected Encounter This section includes the information on record at [place] for the Encounter. Date/Time Encounter Type Encounter Description Reason Provider Source Aug 07, 2024 12:30 PM TYMPANOMETRY AUDIOLOGY ICD-10-CM Z01.118 Encntr for exam of ears and hearing w oth abnormal findings JUSTIN NUÑEZ [facility] Encounter Template Text not used by VA Assessments - Encounter Diagnoses This section includes the primary and secondary diagnoses documented for the Encounter. Date/Time Primary/Secondary Diagnosis Diagnosis Name Provider Source Aug 07, 2024 01:16 PM PRIMARY Encntr for exam of ears and hearing w oth abnormal findings JOSEPH NUÑEZ [facility] Aug 07, 2024 01:16 PM SECONDARY Sensorineural hearing loss, bilateral JOSEPH NUÑEZ [facility] Aug 07, 2024 01:16 PM SECONDARY Tinnitus, bilateral JOSEPH NUÑEZ [facility] Plan of Treatment: Future Appointments (+ 6 months) and Future Tests (+/- 45 days) The Plan of Treatment section includes future care activities for the [facility] [place] [facility] This section includes future appointments and future orders which are active, pending or scheduled. Future Appointments This section includes appointments that were scheduled to occur 6 months from the date of the Encounter, up to a maximum of 20 appointments. The data comes from all [facility] facilities. Appointment Date/Time Appointment Type Appointme nt Facility Name Sep 11, 2024 12:30 PM AMBULATORY - SURGERY [facility] Social History: Smoking Status (Most current) and Tobacco Use (All prior to encounter date) This section includes the most current, and the historical, smoking and tobacco- related health factors from the [place] facility where the Encounter took place. Current Smoking Status This section includes the most current smoking, or tobacco-related health factor, from the [place] facility where the Encounter took place. Date/Time Current Smoking Status Comment Facil ity Jul 17, 2021 08:15 AM VA-TOBACCO FORMER USER [facility] Tobacco Use History This section includes a history of the smoking, or tobacco-related health factors, that were collected on or before the date of the Encounter. The data comes from the [place] facility where the Encounter took place. Date/Time Smoking Status/Tobacco Use Comment F acility Jul 17, 2021 08:15 AM VA-TOBACCO QUIT 15 YRS OR MORE [facility] Aug 21, 2019 04:14 PM VA-TOBACCO FORMER USER [facility] Aug 21, 2019 04:14 PM [place]-TO[place] QUIT 15 YRS OR MORE [facility] Aug 31, 2017 09:16 AM FORMER TOBACCO USER 7Y OR GREATE R [facility] Aug 11, 2016 08:47 AM FORMER TOBACCO USER 7Y OR GREATE R [facility] Sep 09, 2015 08:56 AM FORMER TOBACCO USER 7Y OR GREATE R [facility] Dec 23, 2006 12:28 PM FORMER TOBACCO USER 7Y OR GREATE R [facility] Advance Directives: All historical and current Section Date Range: From patient's date of to the date document was created. This section includes ALL of a patient's completed or amended [place] Advance and Rescinded Directives. The entries below indicate that a directive exists for the patient, but an actual copy is not included with this document. The data comes from all [place] facilities. Date Advance Directives Provider Source May 22, 2003 ADVANCE DIRECTIVE LAURA MCGHEE [facility] Encounter Notes: All associated encounter notes This section contains the clinical notes associated to the Encounter. Date/Time Encounter Note(s) Provider Source Aug 07, 2024 07:20 AM AUDIOLOGY NOTE: LOCAL TITLE: AUDIOLOGY CLINIC NOTE STANDARD TITLE: AUDIOLOGY NOTE DATE OF NOTE: AUG 07, 2024@07:20 ENTRY DATE: AUG 07, 2024@07:20:41 AUTHOR: MAEGAN NUÑEZ COSIGNER: URGENCY: STATUS: COMPLETED DIAGNOSIS: Encounter for examination of ears and hearing Sensorineural loss, bilateral Tinnitus, bilateral REASON FOR VISIT: HEARING EVALUATION AND HEARING AID SELECTION, 60 MINUTES: [place] was seen in the clinic today for a comprehensive audiologic evaluation, hearing aid selection, hearing aid service, and counseling. LOCATION OF VISIT (ROOM NUMBER): [id number] The was last seen in this clinic on 03/22/2020. The is NOT Service Connected for Hearing Loss / Tinnitus. [place] was accompanied by his son, Carlitos. The currently wears the following hearing aids: Hearing aids right/left; Date Fit: Mar Make: PHONAK Model: AUDEO M90 RT LYLA Serial #: [id number] Mannequin Mold Maker/Slim Tube Size: Dome/Earmold: SMALL POWER HISTORY: seen with a history of asymmetric sensorineural hearing loss and tinnitus. He reported a decrease in hearing. He denied any change in tinnitus. He denied other otologic symptoms. Patient is eligible for new hearing aids. stated the current hearing aids are not working well, and not holding a charge. He did not bring them with today. PROCEDURES: OTOSCOPY: Bilaterally: Free of excessive cerumen. Normal appearing TM's and canals. TYMPANOMETRY: RIGHT EAR: Type A Pressure: Normal Compliance: Normal Volume: Normal LEFT EAR: Type Ad Pressure: Normal Compliance: High, 6.51 mL Volume: Normal AUDIOMETRICS: Air conduction, bone conduction and speech testing were completed bilaterally. Transducer: Insert phones, Circumaural headphones Reliability: Good RIGHT EAR (Hz) 250 637 217 0829 1500 2000 3000 4000 6000 8000 Air: See Audiogram Display under Tools / AUDIOLOGY / ROES or see RAQUEL Database Bone: See Audiogram Display under Tools / AUDIOLOGY / ROES or see RAQUEL Database LEFT EAR (Hz) 250 628 230 5658 1500 2000 3000 4000 6000 8000 Air: See Audiogram Display under Tools / AUDIOLOGY / ROES or see RAQUEL Database Bone: See Audiogram Display under Tools / AUDIOLOGY / ROES or see RAQUEL Database - All thresholds are in dB HL * = Masked Threshold SRT: Spondees Right: 35 dB HL Left: 35 dB HL Pure tone results were consistent with speech airline lounge receptionist thresholds. WORD RECOGNITION: / - word list RIGHT EAR: 40% Level: 90* dB LEFT EAR: 28% Level: 95* dB SUMMARY: Hearing is somewhat worse as compared to the last examination. RIGHT EAR: Mild sloping to profound sensorineural hearing loss with poor word recognition. LEFT EAR: Mild sloping to profound sensorineural hearing loss with poor word recognition. DISCUSSION: - Results were reviewed with the patient. - [place] continues to be a good candidate for hearing aid use. - [place] has hearing loss that interferes with or restricts communication to the extent that it affects their active participation in the provision of health care services as determined by the mission systems engineer. AMPLIFICATION: - Different styles/technologies were reviewed with consideration given to veterans listening situations and lifestyle needs. [place] is interested in pursuing similar hearing aids to current devices. Discussed custom earmolds, which he agreed to. Discussed use of a TV streamer; is currently using a headset that he uses a lot. He stated he does not use his hearing aids very much as they don't hold a charge. Reviewed expectations for amplification and importance of consistent use. - counseled using a standard curriculum on expectations for new hearing aids, VA procedures and trial period. - Earmold impressions taken bilaterally without complication. Otoscopy normal post earmold impression procedure, AU. - Hearing aids ordered: Phonak Audiosocketeo I90-R LYLA hearing aids (champagne, Size 3xM receivers, canal cShells, AOVs, Wax traps, removal strings) were selected and ordered today. - Accessories ordered: TV Connector PLAN: - [place] will be scheduled for a 60-minute hearing aid fitting appointment. Recommended bring his hearing aids to this appointment to have them checked. - Monitor hearing for increase in asymmetry of hearing loss and/or word recognition scores. If otologic symptoms arise or asymmetry increases, ENT referral may be warranted at this time. - PATIENT IS IN AGREEMENT WITH THIS PLAN. /jamison/ MAEGAN NUÑEZ HEALTHCARE FINANCIAL ANALYST Signed: 08/07/2024 13:31 MAEGAN NUÑEZ [facility]
--- OUTSIDE RECORDS SUMMARY | 2024-09-11 07:30 | XMS_ITS | Encounter Summary ---
Author Name [facility] [place] [facility] [place] Address [address] [place] [id number] Care Team Providers Care Ethylene Oxide Panelboard Operator Name Role Phone JASBIR PARK Primary Care [...] Name Patient's Relationship to Policy Mclaughlin MEDICA [facility] ([place]NR) MEDICARE ADVANTAGE [facility] (WNR) Sep 05, 2015 [id number] [phone] SHAHLA ZAPATA PATIENT U-CARE OF [facility] (WNR) MEDICARE ([place]) MEDIC ARE NI Gilbert Sep 05, 2019 REPLACE MENT [id number] SHAHLA ZAPATA PATIENT [facility] OF [facility] (WNR) MEDICARE ADVANTAGE [facility] (WNR) Sep 05, 2019 [id number] SHAHLA ZAPATA PATIENT Selected Encounter This section includes the information on record at [place] for the Encounter. Date/Time Encounter Type Encounter Description Reason Provider Source Sep 11, 2024 12:30 PM CONFORMITY EVALUATION AUDIOLOGY ICD-10-CM H90.3 Sensorineural hearing loss, bilateral [place] I[facility] Encounter Template Text not used by VA Assessments - Encounter Diagnoses This section includes the primary and secondary diagnoses documented for the Encounter. Date/Time Primary/Secondary Diagnosis Diagnosis Name Provider Source Sep 11, 2024 01:02 PM PRIMARY Sensorineural hearing loss, bilateral JOSEPH NUÑEZ [facility] Sep 11, 2024 01:02 PM SECONDARY Encounter for fitting and adjustment of hearing aid JOSEPH NUÑEZ [facility] Sep 11, 2024 01:02 PM SECONDARY Tinnitus, bilateral JOSEPH NUÑEZ [facility] Social History: Smoking Status (Most current) and Tobacco Use (All prior to encounter date) This section includes the most current, and the historical, smoking and tobacco- related health factors from the [place] facility where the Encounter took place. Current Smoking Status This section includes the most current smoking, or tobacco-related health factor, from the [place] facility where the Encounter took place. Date/Time Current Smoking Status Comment Facil ity Jul 17, 2021 08:15 AM VA-TOBACCO FORMER USER [facility] Tobacco Use History This section includes a history of the smoking, or tobacco-related health factors, that were collected on or before the date of the Encounter. The data comes from the [place] facility where the Encounter took place. Date/Time Smoking Status/Tobacco Use Comment F acility Jul 17, 2021 08:15 AM VA-TOBACCO QUIT 15 YRS OR MORE [facility] Aug 21, 2019 04:14 PM VA-TOBACCO FORMER USER [facility] Aug 21, 2019 04:14 PM [place]-TOBACCO QUIT 15 YRS OR MORE [facility] Aug 31, 2017 09:16 AM FORMER TOBACCO USER 7Y OR GREATE R [facility] Aug 11, 2016 08:47 AM FORMER TOBACCO USER 7Y OR GREATE R [facility] Sep 09, 2015 08:56 AM FORMER TOBACCO USER 7Y OR GREATE R [facility] Dec 23, 2006 12:28 PM FORMER TOBACCO USER 7Y OR GREATE R [facility] Advance Directives: All historical and current Section Date Range: From patient's date of to the date document was created. This section includes ALL of a patient's completed or amended [place] Advance and Rescinded Directives. The entries below indicate that a directive exists for the patient, but an actual copy is not included with this document. The data comes from all [facility]. Date Advance Directives Provider Source May 22, 2003 ADVANCE DIRECTIVE LAURA MCGHEE [facility] Encounter Notes: All associated encounter notes This section contains the clinical notes associated to the Encounter. Date/Time Encounter Note(s) Provider Source Sep 11, 2024 07:21 AM AUDIOLOGY NOTE: LOCAL TITLE: AUDIOLOGY CLINIC NOTE STANDARD TITLE: AUDIOLOGY NOTE DATE OF NOTE: SEP 11, 2024@07:21 ENTRY DATE: SEP 11, 2024@07:21:25 AUTHOR: MAEGAN NUÑEZ COSIGNER: URGENCY: STATUS: COMPLETED DIAGNOSIS: Encounter for Fitting and Adjustment of Hearing Aid Sensorineural loss, bilateral Tinnitus, bilateral REASON FOR VISIT: Therapeutic - hearing aid fitting, conformity evaluation (real-ear measures), orientation and counseling LOCATION OF VISIT (ROOM NUMBER): [id number] Darlyn was seen for Hearing Aid [place] Appointment HISTORY: Darlyn is an experienced hearing aid wearer. Recommended keep his old hearing aids as a backup/spare as needed. He did not bring his old hearing aids. He was seen today with his son. HEARING AIDS (Right/Left) fit: 09/11/2024 Make: Phonak Model: ClusterSeveneo I90-R LYLA Serial Numbers R/L: [id number] / [id number] Machinery Engineer/Slim Tube Size: 3M Dome/Earmold: canal cShells ACCESSORIES: TV Connector OTOSCOPY: Both Ears: Free of excessive cerumen. Normal anatomy bilaterally ACTION: Hearing aid(s) are a good physical fit. Feedback test was completed and feedback discovery manager was activated. Hearing aid(s) were programmed to prescriptive targets, which were derived from the Veterans hearing loss. CONFORMITY EVAUATION (VERIFICATION OF HEARING AID FUNCTION): Real Ear Aided Response (REAR) was measured using the Verifit 2 system using NAL-NL2 targets. Most targets were met. Loudness intolerance was measured using a 85 dB MPO tone sweep and the patient was able to tolerate the output of the hearing device(s). Veterans subjective impressions were considered while adjusting the hearing aid(s). reported good sound quality and equal balance between ears after adjustments were made. Lloyd reported a comfortable fit. demonstrated understanding of the new aid(s) and was able to insert the hearing aid(s) appropriately, as well as manipulate the volume control and charging unit. Indicator tones were demonstrated for Lloyd. Volume control enabled- Synchronized Program button enabled Accessories were paired to the hearing aid(s). Lloyd was educated and counseled on use and features of the device(s) as well as how to connect them. The device(s) were demonstrated in the office to ensure both device functionality and understanding. Lloyd does not want to connect to a cell phone. Lloyd was counseled (30 minutes) regarding: -Full-time hearing aid use and acclimating to amplification -Realistic expectations for hearing aid use -Appropriate communication strategies -How to charge the hearing aids -Location and operation of all controls -Proper care and maintenance -Protecting hearing in high noise levels -Warning about battery ingestion -[facility] and Call Center contact information and services, including the trial period. Prognosis for success is good, given the Veterans response to the hearing aid(s). Hearing aid(s) were issued and supplies were mailed. Lloyd was provided with a copy of [place] issuance form [id number]. PLAN: Lloyd will return to clinic for service as needed. Patient is in agreement with this plan. /jamison/ MAEGAN NUÑEZ COURT MANAGER Signed: 09/11/2024 13:02 MAEGAN NUÑEZ [facility]
--- OUTSIDE RECORDS SUMMARY | 2024-11-22 07:28 | XMS_ITS | Continuity of Care Document ---
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 It does not include entries that were removed or entered in error. Problem Status Onset Date Problem Type Date of Resolution Comments Source AAA screen nl Active Condition [facility] Bilat carotid US: neg 10/10 Active Condition [facility] C-scopy outside 12/07 per pt: polyps removed: told me to RTC 3 yr Active Condition Oct 20, 2007 Entered By: JUDE COUGHLIN Comment: Declined referral 2008 Entered By: JUDE COUGHLIN Comment: 10-14 declined referral [facility] Carpal Tunnel Syndrome Active Condition Aug 26, 2006 Entered By: JUDE COUGHLIN Comment: RTMay 2006 Entered By: JUDE COUGHLIN Comment: s/p surg 12-10 [facility] Coronary Artery Disease Active Condition May 22, 2003 Entered By: CASPER DIAS I Comment: s/p stenting in 2009 Entered By: JUDE COUGHLIN Comment: S/P STENTING -2009 [facility] DECLINED ZOSTER VACCINE -2010 Active Condition Oct 13, 2012 Entered By: JUDE COUGHLIN Comment: GOT SHINGLES RASH -2012; rx outside [facility] Degenerative Joint Disease Active Condition Oct 01, [...] Entered By: JUDE COUGHLIN Comment: Rt CUATE [facility] Depression Active Condition [facility] Disorder of Shoulder Region (SCT [id number]) Active Condition Aug 31, 2017 Entered By: JUDE COUGHLIN Comment: Left shoulder rotator cuff repair outside [facility] DJD, Wrist Active Condition [facility] Hyperlipidemia Active Condition [facility] Insulin Resistance Active Condition [facility] LDL > 100: pt declined further incr in Statin dose Active Condition January 27, 2007 Entered By: JUDE COUGHLIN Comment: 5-07 Pt declined statin increase [facility] Lumbar compression fx 2008: Active Condition Oct 10, 2009 Entered By: JUDE COUGHLIN Comment: Vertebroplasty done outside [facility] 2009 Entered By: JUDE COUGHLIN Comment: DEXA: NORMAL [facility] [place] ONLY FROM [facility] 2011 Active Condition Nov 12, 2011 Entered By: JUDE COUGHLIN Comment: PCP In [facility] in [place]: Dr. Mistry 2011 Entered By: JUDE COUGHLIN Comment: significant care fragmentation [facility] WANTS yearly PSA Active Condition Oct 20, 2007 Entered By: JUDE COUGHLIN Comment: declined rectal 2-08 [facility] Diagnosis: ICD-10-CM H90.3 Sensorineural hearing loss, bilateral Active Diagnosis [facility] Diagnosis: ICD-10-CM Z01.118 Encntr for exam of ears and hearing w oth abnormal findings Active Diagnosis [facility] Medications Combined list of outpatient medications from Department of Defense and [facility] Affairs facilities.Medications provided include 1) outpatient medications from the last 15 months, and 2) patient-reported medications. Medication Details Route Status Patient Instructions Prescription Expires Prescription Number Last Dispense Date Ordering Provider Order Date Order Qty Source ASPIRIN 81MG TAB,EC TAKE ONE TABLET BY MOUTH EVERY DAY ORAL ACTIVE JUDE COUGHLIN 2010 [facility] ECHINACEA CAP/TAB TAKE BY MOUTH QWEEK ORAL ACTIVE JUDE COUGHLIN 2007 [facility] FLAXSEED MISCELLANEO US USE MOUTH QWEEK ORAL ACTIVE JUDE COUGHLIN 2007 [facility] FOLIC ACID 1MG TAB TAKE ONE TABLET BY MOUTH QWEEK ORAL ACTIVE CED,JUDE N 2007 [facility] GARLIC OIL CAP,ORAL TAKE BY MOUTH QWEEK ORAL ACTIVE CED,JUDE N 2007 [facility] MAGNESIUM 70MG TAB,EC TAKE TWO TABLETS BY MOUTH QWEEK ORAL ACTIVE CED,JUDE N 2007 [facility] OXYCODONE TAB TAKE ACTIVE CED,JUDE N 2019 [facility] ZINC GLUCONATE 50MG TAB TAKE ONE TABLET BY MOUTH QWEEK ORAL ACTIVE CED,JUDE N 2007 [facility] Allergies, Adverse Reactions, Alerts Combined list of allergies from Department of [facility] and [facility] Affairs facilities. It does not include entries that were removed or entered in error. Substance Category Reaction Severity Reaction type Status Date Reported Comments Source ACETAMINOPHEN Propensity to adverse reactions to drug (finding) Nausea and vomiting active 7 [facility] ACETAMINOPHEN WITH CODEINE Propensity to adverse reactions to drug (finding) GI REACTION active 3 [facility] MORPHINE Propensity to adverse reactions to drug (finding) Drowsy active 7 [facility] SULFA DRUGS Propensity to adverse reactions to drug (finding) HIVES active 3 [facility] Immunizations Combined list of available immunizations from the Department of [facility] and [facility] facilities. Immunization Series Date Given Administered By Site Reaction Lot Number CVX Code Drug Director Of Mobile Marketing Status Comments Source COVID-19 ([employer]), MRNA, LNP-S, PF, 30 MCG/0.3 ML DOSE 3 2020 208 complet ed PRF; [id number]; 2 [facility] COVID-19 ([employer]), MRNA, LNP-S, PF, 30 MCG/0.3 ML DOSE 2 2020 208 complet ed PFR; [id number]; 1 [facility] COVID-19 ([employer]), MRNA, LNP-S, PF, 30 MCG/0.3 ML DOSE 1 2020 208 complet ed PFR; [id number]; 1 [facility] ZOSTER LIVE 2012 121 complet ed [facility] TDAP 2010 115 complet ed [facility] INFLUENZA, UNSPECIFIED FORMULATION 2006 88 complet ed [facility] TD(ADULT) UNSPECIFIED FORMULATION 2002 139 complet ed [facility] Encounters Combined list of: 1) Encounters from Department of [facility] facilities going backup to the last 18 months, not all [place] inpatient encounters are included; 2) Encounters from the Department of [facility] facilities going backup to 280 months. Location Location Details Encounter Type Encounter Number Reason For Visit Attending Provider ADM Date DC Date Status Disposition Source [facility] Outpatient Encounter [id number] 06/29 [facility] [place] [id number] Diagnos is: ICD-10- CM Z01.118 Encntr for exam of ears and hearing w oth abnorma l finding s MAEGAN NUÑEZ 08/07 [facility] CONFORMITY EVALUATION [id number] Diagnos is: ICD-10- CM H90.3 Sensori neural hearing loss, bilater al MAEGAN NUÑEZ 09/11 [facility] Outpatient Encounter [id number] 11/22 [facility] Social History Combined list of available smoking, tobacco, and other social history from Department of [facility] and [facility] facilities. Social History Type Response Date Comment Sourc e Tobacco smoking status NHIS [place]-TOBACCO FORMER USER 07/17/2021 [facility] History of tobacco use [place]-TOBACCO QUIT 1 5 YRS OR MORE 07/17/2021 [facility] History of tobacco use [place]AC[place] FOR[place] US[place] 08/21/2019 [facility] History of tobacco use FORMER TOBACCO US ER 7Y OR GREATER 08/31/2017 [facility] History of tobacco use FORMER TOBACCO US ER 7Y OR GREATER 08/11/2016 [facility] History of tobacco use FORMER TOBACCO US ER 7Y OR GREATER 09/09/2015 [facility] History of tobacco use FORMER TOBACCO US ER 7Y OR GREATER 12/23/2006 [facility] Advance Directives List of completed, amended, or rescinded Advance Directives on record at Department of [facility] Affairs facilities. An actual copy of the Directive is not included. Date Advance Directive Provider Source 05/22/2003 ADVANCE DIRECTIVE LAURA MCGHEE [facility]
--- OUTSIDE RECORDS SUMMARY | 2024-11-22 07:28 | XMS_ITS | Continuity of Care Document ---
Author Name [facility] Organization [facility] Care Team Providers Care [employer] Logistics Manager Name Role Phone [facility] Unavailable Unavailable Problems Combined list of problems from Department of Defense and Veterans Affairs facilities. It does not include entries that were removed or entered in error. Problem Status Onset Date Problem Type Date of Resolution Comments Source AAA screen nl Active Condition [facility] Bilat carotid US: neg 10/10 Active Condition [facility] C-scopy outside 12/07 per pt: polyps removed: told me to RTC 3 yr Active Condition Oct 20, 2007 Entered By: JUDE COUGHLIN Comment: Declined referral 2008 Entered By: JUDE COUGHLIN Comment: 10-14 declined referral [facility] Carpal Tunnel Syndrome Active Condition Aug 26, 2006 Entered By: JUDE COUGHLIN Comment: RTMay 2006 Entered By: JUDE COUGHLIN Comment: s/p surg 12-10 [facility] Coronary Artery Disease Active Condition May 22, 2003 Entered By: CASPER DIAS I Comment: s/p stenting in 2009 Entered By: JUDE COUGHLIN Comment: S/P STENTING -2009 [facility] DECLINED ZOSTER VACCINE -2010 Active Condition Oct 13, 2012 Entered By: JUDE COUGHLIN Comment: GOT SHINGLES RASH -2012; rx outside [facility] Degenerative Joint Disease Active Condition Oct [...] Entered By: JUDE COUGHLIN Comment: Rt CUATE [facility] Depression Active Condition [facility] Disorder of Shoulder Region (SCT [id number]) Active Condition Aug 31, 2017 Entered By: JUDE COUGHLIN Comment: Left shoulder rotator cuff repair outside [facility] DJD, Wrist Active Condition [facility] Hyperlipidemia Active Condition [facility] Insulin Resistance Active Condition [facility] LDL > 100: pt declined further incr in Statin dose Active Condition January 27, 2007 Entered By: JUDE COUGHLIN Comment: 5-07 Pt declined statin increase [facility] Lumbar compression fx 2008: Active Condition Oct 10, 2009 Entered By: JUDE COUGHLIN Comment: Vertebroplasty done outside [facility] 2009 Entered By: JUDE COUGHLIN Comment: DEXA: NORMAL [facility] ONLY [facility] 2011 Active Condition Nov 12, 2011 Entered By: JUDE COUGHLIN Comment: PCP In [facility] in [place]: Dr. Mistry 2011 Entered By: JUDE COUGHLIN Comment: significant care fragmentation [facility] WANTS yearly PSA Active Condition Oct 20, 2007 Entered By: JUDE COUGHLIN Comment: declined rectal 2-08 [facility] Diagnosis: ICD-10-CM H90.3 Sensorineural hearing loss, bilateral Active Diagnosis [facility] Diagnosis: ICD-10-CM Z01.118 Encntr for exam of ears and hearing w oth abnormal findings Active Diagnosis [facility] Medications Combined list of outpatient medications from Department of Defense and [facility] Affairs facilities.Medications provided include 1) outpatient medications from the last 15 months, and 2) patient-reported medications. Medication Details Route Status Patient Instructions Prescription Expires Prescription Number Last Dispense Date Ordering Provider Order Date Order Qty Source ASPIRIN 81MG TAB,EC TAKE ONE TABLET BY MOUTH EVERY DAY ORAL ACTIVE JUDE COUGHLIN 2010 [facility] ECHINACEA CAP/TAB TAKE BY MOUTH QWEEK ORAL ACTIVE JUDE COUGHLIN 2007 [facility] FLAXSEED MISCELLANEO US USE MOUTH QWEEK ORAL ACTIVE JUDE COUGHLIN 2007 [facility] FOLIC ACID 1MG TAB TAKE ONE TABLET BY MOUTH QWEEK ORAL ACTIVE CED,JUDE N 2007 [facility] GARLIC OIL CAP,ORAL TAKE BY MOUTH QWEEK ORAL ACTIVE CED,JUDE N 2007 [facility] MAGNESIUM 70MG TAB,EC TAKE TWO TABLETS BY MOUTH QWEEK ORAL ACTIVE CED,JUDE N 2007 [facility] OXYCODONE TAB TAKE ACTIVE CED,JUDE N 2019 [facility] ZINC GLUCONATE 50MG TAB TAKE ONE TABLET BY MOUTH QWEEK ORAL ACTIVE CED,JUDE N 2007 [facility] Allergies, Adverse Reactions, Alerts Combined list of allergies from Department of [facility] and [facility] Affairs facilities. It does not include entries that were removed or entered in error. Substance Category Reaction Severity Reaction type Status Date Reported Comments Source ACETAMINOPHEN Propensity to adverse reactions to drug (finding) Nausea and vomiting active 7 [facility] ACETAMINOPHEN WITH CODEINE Propensity to adverse reactions to drug (finding) GI REACTION active 3 [facility] MORPHINE Propensity to adverse reactions to drug (finding) Drowsy active 7 [facility] SULFA DRUGS Propensity to adverse reactions to drug (finding) HIVES active 3 [facility] Immunizations Combined list of available immunizations from the Department of [facility] and [facility] facilities. Immunization Series Date Given Administered By Site Reaction Lot Number CVX Code Drug Editor News Status Comments Source COVID-19 ([employer]), MRNA, LNP-S, PF, 30 MCG/0.3 ML DOSE 3 2020 208 complet ed PRF; [id number]; 2 [facility] COVID-19 ([employer]), MRNA, LNP-S, PF, 30 MCG/0.3 ML DOSE 2 2020 208 complet ed PFR; [id number]; 1 [facility] COVID-19 ([employer]), MRNA, LNP-S, PF, 30 MCG/0.3 ML DOSE 1 2020 208 complet ed PFR; [id number]; 1 [facility] ZOSTER LIVE [address] [facility] TDAP [address] [facility] INFLUENZA, UNSPECIFIED FORMULATION [address] [facility] TD(ADULT) UNSPECIFIED FORMULATION [address] [facility] Encounters Combined list of: 1) Encounters from Department of [facility] facilities going backup to the last 18 months, not all [place] inpatient encounters are included; 2) Encounters from the Department of [facility] facilities going backup to 280 months. Location Location Details Encounter Type Encounter Number Reason For Visit Attending Provider ADM Date DC Date Status Disposition Source [facility] Outpatient Encounter [id number] 06/29 [facility] [place] [id number] Diagnos is: ICD-10- CM Z01.118 Encntr for exam of ears and hearing w oth abnorma l finding s MAEGAN NUÑEZ 08/07 [facility] CONFORMITY EVALUATION [id number] Diagnos is: ICD-10- CM H90.3 Sensori neural hearing loss, bilater al MAEGAN NUÑEZ 09/11 [facility] Outpatient Encounter [id number] 11/22 [facility] Social History Combined list of available smoking, tobacco, and other social history from Department of [facility] and [facility] facilities. Social History Type Response Date Comment Sourc e Tobacco smoking status NHIS [place]-TOBAC[place] FORMER USER 07/17/2021 [facility] History of tobacco use [place]-TOBACCO QUIT 1 5 YRS OR MORE 07/17/2021 [facility] History of tobacco use [place]-TO[place]ACCO FORMER USER 08/21/2019 [facility] History of tobacco use FORMER TOBACCO US ER 7Y OR GREATER 08/31/2017 [facility] History of tobacco use FORMER TOBACCO US ER 7Y OR GREATER 08/11/2016 [facility] History of tobacco use FORMER TOBACCO US ER 7Y OR GREATER 09/09/2015 [facility] History of tobacco use FORMER TOBACCO US ER 7Y OR GREATER 12/23/2006 [facility] Advance Directives List of completed, amended, or rescinded Advance Directives on record at Department of [facility] Affairs facilities. An actual copy of the Directive is not included. Date Advance Directive Provider Source 05/22/2003 ADVANCE DIRECTIVE LAURA MCGHEE [facility]
--- OUTSIDE RECORDS SUMMARY | 2025-03-05 11:48 | XMS_ITS | Clinical Summary ---
Author Organization [employer] [facility] Address [address] [place] [address] Care Team Providers Care Technical Sales Engineer Name Role Phone Sherif Valladares MD Primary Care Provider [facility], [place] Unavailable [phone] Allergies Active Allergy Reactions Criticality Noted Date Comments Acetaminophen *Unknown 10/04/2024 Per [facility] records. Metoprolol 11/10/2009 States that it causes chest pain. See telephone encounter of 11/10/2009. Morphine Nausea Only 06/03/2008 Sulfa (Sulfonamide Antibiotics) 06/03/2008 Ketorolac *None-Radiology Only 05/07/2009 Didn't feel good Acetaminophen Nausea Only,Headache 06/03/2008 Medications atorvastatin (LIPITOR) 40 mg tabletIndications:H yperlipidemia, unspecified hyperlipidemia type Take 1 Tablet (40 mg) by mouth at bedtime. 90 Tablet 3 4 Active ibuprofen (ADVIL; MOTRIN) 400 mg tablet Take 400 mg by mouth every 6 hours if needed for Pain. 5 Active sennosides (Senna) 8.6 mg tablet Take 2 Tablets by mouth 2 times daily if needed for Constipation . 5 Active tamsulosin 0.4 mg capsule Take 0.4 mg by mouth once daily. 5 Active cholecalciferol (Vitamin D) 1,000 unit tablet Take 1 Tablet by mouth once daily. 5 Active Active Problems Problem Noted Date Diagnosed Date Encounter for admission to hospice care 01/17/20 25 Overview (01/16/2025): CONSULT ONLY 01/16/2025 patient does not have a terminal diagnosis at this time. Recommend monitoring for further decline and having us reassess him for admission if something changes. Hospice Physician Narrative Encounter for Discussion of Hospice Care Physician Chart Review: 01/16/2025 Patient: Raúl Davis This note is intended for informational purposes only as the patient is being evaluated for eligibility and considered for enrollment. Primary hospice diagnosis: Complicating medical conditions (comorbid/secondary): 3rd/unrelated category: Dxs: Uncovered Medications: These unrelated diagnoses and medications do not affect pt's prognosis as they are stable and/or are easily managed and are unrelated to reasons/diagnoses/prognosis for which pt enrolled in hospice, or we have a formulary equivalent we can offer. Physician narrative: Raúl Davis is an 89-year-old with a history of dementia, HTN, CAD, and urinary retention. His memory issues were first noted in the chart in 2018. He fell down the stairs at home in Sep and suffered some fractures. He was hospitalized at [facility], he did rehabilitation in [place] and didn't make enough improvement to return home, but was also not progressing further, so he was transferred to a skilled facility. His weight dropped after his fall, but since getting to his current facility his weight has been rebounding. His weight was 192 pounds in September, dropped to 165 pounds, now up to 175 pounds. His appetite has increased again. He can feed himself. He eats in the dining room three times per day and knows when meals are. Has made friends at his facility and is enjoying socializing with them. He has frequent falls due to impulsivity. He is quite chatty, he understands and tracks conversation. He is somewhat ornery, and would probably do better in a memory care unit, but is being cared for in a SNF. He has BPH and urinary retention with a matthew catheter in place. His last UTI was in September. BP was 142/72 and HR 70 - not on meds. Has some non-pitting edema in the bilateral lower extremities. He is taking ibuprofen and senna only at this time. CT head Sep 2024 Moderate to severe diffuse cerebral cerebellar volume loss, with ex vacuo dilation of the lateral ventricles, likely secondary to cerebral atrophy. 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 Goals of care are for comfort and not treatment of underlying disease and pt's would like to avoid ED visits and hospitalizations and allow a natural . His current PPS is 50%, six months ago it was 70%. He is continent of bowel. He needs assistance with some of his ADLs. Creatinine/GFR: 0.73/88 QTc: 456 on 09/27/24 Nellie Trevino MD 01/16/2025 8:16 AM Hearing loss 09/30/2022 Unspecified essential hypertension 11/07/2013 Personal history of colonic polyps 05/07/2009 Overview (05/07/2009): Colonoscopy 05/2009 normal repeat in 5 years CAD (coronary artery disease) 06/03/2008 Overview (08/23/2014): -Complex PCI of LAD tandem lesions 3 stents 08/02/2000; 4 stents in 2008 Impaired fasting glucose 06/03/2008 Arthritis Overview (08/23/2014): knees,neck and ankles, lumbar Hyperlipidemia Resolved Problems Problem Noted Date Diagnosed Date Resolved Date Chest pain 11/13/2009 09/09/2017 Abnormal cardiovascular stress test 11/13/2009 12/19/2020 Overview (11/13/2009): -Stress Myoview at [place] Small to moderate ischemia involving the inferior wall EF 57% -11/13/09 s/p DOROTHEA and BMS to prox to mid RCA senior living (current) use of anticoagulants 01/07/2009 05/07/2009 Routine general medical exam ination at a health care facility 06/03/2008 07/02/2020 Overview (06/03/2008): Colonoscopy 08/07/04 RECOMMENDED RECHECK IN 3 YEARS Encounters Date Type Department Care Team Description 02/11/2025 Lab Requisition [facility] [phone] Ami Escobar NP 01/16/2025 Home Care Visit [facility] [address] [place] [address] Zen Paige RN SN - HOSPICE NON-ADMIT 01/07/2025 Transcribe Orders [facility] [address] [place] [address] [facility] Immunizations Immunization Administration Dates Next Due COVID-19 vaccine (Moderna 100mcg/0.5mL) PF, MDV 03/29/2024,06/02/2022,06/15/2021,2020,10/12/2020 COVID-19 vaccine (Pfizer-Bio NTech 30mcg/0.3mL) 12YO+ BIVALENT PF, MDV 06/02/2022 COVID-19 vaccine (Pfizer-Bio NTech 30mcg/0.3mL) PF, MDV 07/17/2021,11/02/2020,10/12/2020 Influenza Virus, Unspecified 08/10/2022,10/25/19 07 Influenza, High-dose Quadriv alent Inactivated 08/10/2022 TD, UNSPECIFIED 09/05/2002 Td (Age >=7 Years) 07/05/1997 Td, Preservative Free (age > = 7 Years) 12/27/2008 Tdap 12/03/2018,12/04/2010 Zoster (Zostavax-ZVL, live) 06/05/2013 Zoster, Unspecified Formulation 06/05/2013 Family History Medical History Relation Name Comments Cancer-colon Brother [place] Coronary artery disease Brother Alannah Sten ts Diabetes Father Glucose intoler ance Heart Disease Father [place] Arthritis Mother Dementia Mother Cancer Other Remote relative s- cousins w prostate cancer Cancer-colon Sister Coronary artery disease Sister Sten ts Hyperlipidemia Sister Skin cancer Sister Asthma Son Relation Name Status Comments Brother [place] Alive Father (Age 68) Mother (Age 96) Other Sister Alive Son Social History Tobacco Use Types Packs/Day Years Used Date Smoking Tobacco: Former Pipe Q uit: 09/05/1979 Cigars Quit: 09/05/18 82 Smokeless Tobacco: Never Tobacco Cessation:Counseling Given: No Comments:pipe and cigars cigarettes lightly 25-30 years Alcohol Use Standard Drinks/Week Comments Yes 0 (1 standard drink = 0.6 oz pur e alcohol) PHQ-2 Answer Date Recorded PHQ-2 TOTAL SCORE 1 11/24/2023 Financial Resource Strain Answer Date R ecorded Difficulty of Paying Living Expenses Not on file 09/05/2021 Difficulty of Paying Living Expenses Not on file 09/05/2021 Sex and Gender Information Value Date Recorded Sex Assigned at Not on file Legal Sex Male 6:21 AM SNOW BLOWER Gender Identity Not on file Sexual Orientation Not on file 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 Not on file Not on file Obstetrics History Last Filed Vital Signs Vital Sign Reading Time Taken Comments Blood Pressure 142/72 01/16/2025 1:51 PM CDT Pulse 70 01/16/2025 1:51 PM CDT Temperature 36.9 C (98.5 F) 01/16/2025 1:51 PM CDT Respiratory Rate 16 01/16/2025 1:51 PM CDT Oxygen Saturation 98% 01/16/2025 1:51 PM CDT Inhaled Oxygen Concentration - - Weight 92.9 kg (204 lb 12.8 oz) 024 10:33 AM CDT Height 174.5 cm (5' 8.7) 11/24/2023 10 :33 AM CDT Body Mass Index 30.51 11/24/2023 10:33 AM CDT Plan of Treatment Health Maintenance Due Date Last Done Comments Pneumococcal series for age 50+ (1 of 2 - PCV) 1954 RSV vaccine for adults or (1 - 1-dose 75+ series) 2012 Zoster (shingles) series for age 50+ (2 of 3) 07/31/2013 06/05/2013 COVID-19 vaccine series (2023- season) 2024 03/29/2024, 03/29/2024, 06/02/2022, Additional history exists BMI (ht and wt on same day) for age 18+ 11/23/2024 11/24/2023, 09/30/2022, 12/19/2020, Additional history exists Depression screening for age 12+ 11/23/2024 11/24/2023, 09/30/2022, 11/13/2018, Additional history exists Medicare Wellness for age 65+ 11/24/2024 11/24/2023, 09/30/2022, 09/09/2017, Additional history exists Influenza Vaccine (Season Ended) 2025 08/10/2022, 10/25/2006 Tetanus booster 12/03/2028 12/03/2018, 04/0 09/2010, 12/27/2008, Additional history exists (IA) Tdap Completed 12/03/2018, 12/04/2010 Hepatitis B series for 19+ Aged Out N o longer eligible based on patient's age to complete this topic Procedures Procedure Name Priority Date/Time Associated Diagnosis Comments PRO-BNP Routine 02/12/2025 8:00 AM CDT Essential (primary) hypertension BASIC METABOLIC PANEL Routine 02/12/2025 8:00 AM CDT Essential (primary) hypertension from Last 3 Months Results * PRO-BNP (02/12/2025 8:00 AM CDT) PRO-BNP 447 <450 pg/mL 02/12/2025 10:22 AM CDT [facility] Blood BLOOD SPECIMEN / Unknown Venipuncture / Unknown 02/12/2025 8:00 AM CDT 02/12/2025 9:37 AM CDT [facility] - 02/12/2025 10:22 AM CDT The following cut-points have been suggested for the use of proBNP for the diagnostic evaluation of heart failure (HF) in patient with acute dyspnea. Patients with eGFR >= 60 Diagnosis (rule in CHF) <50 Years Old 450 pg/mL 50 - 75 Years Old 900 pg/mL >75 Years Old 1800 pg/mL Exclusion (rule out CHF) Age Independent 300 pg/mL A cutoff of 1200 pg/mL for patients with an eGFR <60 yields a diagnostic sensitivity of 89% and specificity of 72% for acute congestive heart failure. us Ami Escobar [employer] COUNSELORS SEND OUTS Final Resul t [facility] [address] [place] [address] * (ABNORMAL) BASIC METABOLIC PANEL (02/12/2025 8:00 AM CDT) SODIUM 141 136 - 145 mmol/L 02/12/2025 10:17 AM [facility] POTASSIUM 3.9 3.5 - 5.1 mmol/L 02/12/2025 10:17 AM [facility] CHLORIDE 103 98 - 107 mmol/L 02/12/2025 10:17 AM [facility] CO2,TOTAL 28 22 - 29 mmol/L 02/12/2025 10:17 AM [facility] ANION GAP 10 5 - 18 02/12/2025 10:17 AM [facility] GLUCOSE 86 70 - 99 mg/dL 02/12/2025 10:17 AM [facility] CALCIUM 9.7 8.8 - 10.4 mg/dL 02/12/2025 10:17 AM [facility] Comment: Reference ranges for this test were updated on 07/10/2024 to reflect our healthy population more accurately. Reference range changes are not retroactively applied to results, but previous results using the same methodology can be interpreted in the context of the new reference range. BUN 16 8 - 23 mg/dL 02/12/2025 10:17 AM [facility] CREATININE 0.85 0.70 - 1.20 mg/dL 02/12/2025 10:17 AM [facility] BUN/CREAT RATIO 19 10 - 20 10:17 AM [facility] eGFR 84(L) >90 mL/min/1.7 3m2 02/12/2025 10:17 AM [facility] Comment:As of 2021, eG FR is calculated by the CKD-EPI creatinine equation without race adjustment. eGFR can be influenced by muscle mass, exercise, and diet. The reported eGFR is an estimation only and is only applicable if the renal function is stable. Blood BLOOD SPECIMEN / Unknown Venipuncture / Unknown 02/12/2025 8:00 AM CDT 02/12/2025 9:37 AM CDT us Ami Escobra [employer] CHEMISTRY Final Resul t [facility] [address] [place] [address] from Last 3 Months Insurance [facility] UCARE MEDICARE ADVANTAGE MEDICARE PART A HB ONLY MEDICARE PART B HB ONLY Advance Directives Documents on File Type Date Recorded Patient Propeller Engineer Expl anation POLST 12/28/2024 POLST 10/11/2024 2:09 PM POLST dated 10/04/2024 Healthcare Directive 01/21/2012 1:05 PM HE ALTH CARE DIRECTIVE, [facility], 03/01/11 * Full Code (Latest Code Status on File) Date Activated Date Inactivated Comments 11/13/2009 7:10 AM 11/14/2009 2:19 PM Care Teams Technical Sales Engineer Relationship Specialty Start Date End Date Sherif Valladares MD [address] [place] [facility] [place] [address] PCP - General Family Practice 10/02/[address] [place] [address] 01/07/25
--- OUTSIDE RECORDS SUMMARY | 2025-03-05 11:48 | XMS_ITS | Clinical Summary ---
Author Organization [facility] Address [address] [facility] [place] [address] Care Team Providers Care Oracle Technical Architect Name Role Phone Zen Hanley MD Primary Care Provider + [phone] Vlad Jerez PA-C Unavailable [phone] Vlad Jerez PA-C Unavailable [phone] Kandace Sanders PA-C Unavailable [phone] Allergies Active Allergy Reactions Criticality Noted Date Comments Acetaminophen Unknown,Headache,Jairo se a,Nausea and Vomiting 06/03/2008 Per [facility] records. Ketorolac Other (See Comments) 05/07/2009 Didn't feel good Metoprolol 11/10/2009 States that it causes chest pain. See telephone encounter of 11/10/2009. Morphine Nausea 06/03/2008 Sulfa Antibiotics 06/03/2008 Medications atorvastatin (LIPITOR) 40 MG tablet Take 40 mg by mouth daily. Active Sennosides 17.2 MG TABS Take 17.2 mg by mouth 2 times daily as needed (constipation) . 5 Active tamsulosin (FLOMAX) 0.4 MG capsule Take 0.4 mg by mouth daily. 5 Active ibuprofen (ADVIL/MOTRIN) 400 MG tablet Take 400 mg by mouth every 6 hours as needed for moderate pain. Active lidocaine (LIDODERM) 5 % patchIndication s:Closed fracture of multiple ribs of left side, initial encounter Place onto the skin daily as needed for moderate pain. To prevent lidocaine toxicity, patient should be patch free for 12 hrs daily. 5 Active Vitamin D3 (VITAMIN D-[address]) 25 mcg (1000 units) tablet Take 1 tablet by mouth daily. 5 Active hydroCHLOROthia zide 12.5 MG tablet Take 1 tablet by mouth daily at 2 pm. 4 Active lisinopril (ZESTRIL) 20 MG tablet Take 1 tablet by mouth daily at 2 pm. 4 Active Active Problems Problem Noted Date Diagnosed Date Acute pyelonephritis 09/26/2024 DNR (do not resuscitate) 09/26/2024 PEDRO (acute kidney injury) 09/26/2024 History of dementia 09/26/2024 Compression fracture of body of thoracic vertebr a 09/14/2024 Closed fracture of multiple ribs of left side, initial encounter 09/14/2024 Encounters Date Type Department Care Team Description 12/25/2024 Telephone [facility] [place] [address] [place] [address] Aime Gagnon MD Call Back from Last 3 Months Social History Tobacco Use Types Packs/Day Years Used Date Smoking Tobacco: Never Smokeless Tobacco: Never Tobacco Cessation:Counseling Given: Not Answered Food Insecurity Answer Date Recorded Within the past 12 months, d id you worry that your food would run out before you got money to buy more? No 09/26/2024 Within the past 12 months, d id the food you bought just not last and you didn t have money to get more? No 09/26/2024 Housing Stability Answer Date Recorded Do you have housing? (Layne g is defined as stable permanent housing and does not include staying outside in a car, in a tent, in an abandoned building, in an overnight halfway, or couch-surfing.) Yes 09/26/2024 Are you worried about losing your housing? No 09/26/2024 Financial Resource Strain Answer Date R ecorded Within the past 12 months, h ave you or your family members you live with been unable to get utilities (heat, electricity) when it was really needed? No 09/26/2024 Transportation Needs Answer Date Record ed Within the past 12 months, h as lack of transportation kept you from medical appointments, getting your medicines, non-medical meetings or appointments, work, or from getting things that you need? No 09/26/2024 Interpersonal Safety Answer Date Record ed Do you feel physically and e motionally safe where you currently live? Yes 09/26/2024 Within the past 12 months, h ave you been hit, slapped, kicked or otherwise physically hurt by someone? No 09/26/2024 Within the past 12 months, h ave you been humiliated or emotionally abused in other ways by your partner or ex-partner? No 09/26/2024 Sex and Gender Information Value Date Recorded Sex Assigned at Not on file Legal Sex Male 9:24 AM ASSOCIATE DIRECTOR FINANCE Gender Identity Not on file Sexual Orientation Not on file Last Filed Vital Signs Vital Sign Reading Time Taken Comments Blood Pressure 118/56 11/28/2024 2:13 PM CDT Pulse 73 11/28/2024 2:13 PM CDT Temperature 36.7 C (98.1 F) 11/28/2024 2:13 PM CDT Respiratory Rate 18 10/01/2024 8:25 AM ASSOCIATE DIRECTOR FINANCE Oxygen Saturation 93% 10/01/2024 8:25 AM ASSOCIATE DIRECTOR FINANCE Inhaled Oxygen Concentration - - Weight 82.8 kg (182 lb 8 oz) 09/27/2024 2:33 PM ASSOCIATE DIRECTOR FINANCE Height 180.3 cm (5' 11) 09/26/2024 4:06 PM ASSOCIATE DIRECTOR FINANCE Body Mass Index 25.45 09/26/2024 4:06 PM ASSOCIATE DIRECTOR FINANCE Plan of Treatment Health Maintenance Due Date Last Done Comments ADVANCE CARE PLANNING 1935 ANNUAL REVIEW OF HM ORDERS 1935 LIPID 1935 PNEUMOCOCCAL VACCINE 50+ YEARS (1 of 1 - PCV) 1987 FALL RISK ASSESSMENT 2002 RSV VACCINE (1 - 1-dose 75+ series) 2012 ZOSTER VACCINE (2 of 3) 07/31/2013 06/05/2013 COVID-19 VACCINE ( season) 2024 03/29/2024, 06/02/2022, 07/17/2021, Additional history exists PHQ-2 (once per calendar year) 2024 MEDICARE ANNUAL WELLNESS VISIT 11/23/2024 11/24/2023, 09/30/2022 INFLUENZA VACCINE (Season Ended) 2025 08/10/2022, 10/25/2006 DTAP/TDAP/TD VACCINE (5 - Td or Tdap) 12/03/2028 12/03/2018, 12/04/2010, 12/27/2008, Additional history exists HPV VACCINE Aged Out No longer eligi ble based on patient's age to complete this topic MENINGITIS VACCINE Aged Out No longer eligible based on patient's age to complete this topic Insurance UCARE MEDICARE UCARE MEDICARE Advance Directives For more information, please contact: [phone] * No CPR- Do NOT Intubate (Latest Code Status on File) Date Activated Date Inactivated Comments 09/29/2024 9:01 AM Question Answer Comments Code status determined by: AD/POLST (patient dec ision maker unavailable) * No CPR- Do NOT Intubate Date Activated Date Inactivated Comments 09/26/2024 4:30 PM 09/29/2024 9:01 AM NO basic or advanced life-sustaining interventions are performed Question Answer Comments Code status determined by: AD/POLST (patient dec ision maker unavailable) Care Teams Oracle Technical Architect Relationship Specialty Start Date End Date Zen Hanley MD [address] [place] [address] PCP - General FAMILY MEDICINE-HOSPICE AND PALLIATIVE MEDICINE 09/26/24 Vlad Jerez PA-C [address] [place] [address] Physician Blanking Press Operator Physician Blanking Press Operator - Medical 10/03/24 Vlad Jerez PA-C [address] [place] [address] Physician Blanking Press Operator Physician Blanking Press Operator - Medical 10/03/24 Kandace Sanders PA-C [address] [place] [address] [address] [place] [address] Assigned Surgical Provider 12/26/24
--- OUTSIDE RECORDS SUMMARY | 2025-03-05 11:48 | XMS_ITS | Encounter Summary ---
Author Organization [place] Address [address] [facility] [place] [address] Care Team Providers Care Home Paraprofessional Name Role Phone Zen Hanley MD Primary Care Provider + [phone] Vlad Jerez-C Unavailable [phone] Vlad Jerze PA-C Unavailable [phone] Kandace Sanders PA-C Unavailable [phone] Reason for Visit * Reason Onset Date Comments Call Back 12/25/2024 Encounter Details Date Type Department Care Team (Late st Contact Info) Description 12/25/2024 Telephone [facility] [place] [address] [place] [address] Aime Gagnon MD [address] [place] [address] Call Back Social History Tobacco Use Types Packs/Day Years Used Date Smoking Tobacco: Never Smokeless Tobacco: Never Food Insecurity Answer Date Recorded Within the past 12 months, d id you worry that your food would run out before you got money to buy more? No 09/26/2024 Within the past 12 months, d id the food you bought just not last and you didn t have money to get more? No 09/26/2024 Housing Stability Answer Date Recorded Do you have housing? (Housin g is defined as stable permanent housing and does not include staying outside in a car, in a tent, in an abandoned building, in an overnight custodial, or couch-surfing.) Yes 09/26/2024 Are you worried [...] on file Legal Sex Male 9:24 AM FAMILY DEVELOPMENT EXTENSION SPECIALIST Gender Identity Not on file Sexual Orientation Not on file documented as of this encounter Miscellaneous Notes * Telephone Encounter - Chikis Puga RN - 12/25/2024 11:11 AM CDT Called pts Deneen back and spoke to her about cysto and that it is less invasive than the procedure for GARCIA procedure but still has risk. Explained in detail that cysto is exploring what options pt is a candidate for, and Deneen verbalize that either way regardless of the cysto results anddecision on procedure that she will not allow a procedure for the pt-she is concerned for his dementia and possible side effects of the GA or sedation on the surgery. Pt chooses to cancel the cysto and Deneen will call if they decide to schedule cysto again. All questions answered. ARBEN Diop It Technical Architect Urology [phone] * Telephone Encounter - Payal Bojorquez - 12/25/2024 8:46 AM CDT [facility] Call Center Phone Message May a detailed message be left on voicemail: yes Reason for Call: Other: Spouse calls with questions about Cystoscopy and what is being looked for. Spouse is not sure if she would want patient to go through a surgery and wondering how invasive the Bladder Outlet procedure is. Spouse is requesting a call back to discuss prior to appointment because patient has dementia and spouse does not want to put him through too much. Action Taken: Message routed to: Other: [facility] Travel Screening: Not Applicable documented in this encounter Plan of Treatment Not on file documented as of this encounter Visit Diagnoses Not on filedocumented in this encounter Care Teams Home Paraprofessional Relationship Specialty Start Date End Date Zen Hanley MD [address] [place] [address] PCP - General FAMILY MEDICINE-HOSPICE AND PALLIATIVE MEDICINE 09/26/24 Vlad Jerez PA-C [address] [place] [address] Physician Steel Shot Header Operator Physician Steel Shot Header Operator - Medical 10/03/24 Vlad Jerez PA-C [address] [place] [address] Physician Steel Shot Header Operator Physician Steel Shot Header Operator - Medical 10/03/24 Kandace Sanders PA-C [address] [facility] [address] [place] [address] Assigned Surgical Provider 12/26/24 documented as of this encounter
--- OUTSIDE RECORDS SUMMARY | 2025-03-05 11:48 | XMS_ITS | Continuity of Care Document ---
Author Organization [place] Address [address] [place] [address] Insurance Providers Payer Plan Claims Address Claims Phone Policy Number Group Number Relation Employer Guarantor Name Guarantor Guarantor Address Guarantor Phone SKYLAR REYNOSO [address], [place] [address] tel:[phone] [employer] A[employer] MR [facility] [employer] [facility] [address] MR [address], [place] [address] [id number] Problems Condition ICD9 code ICD10 code SNOMED code Start Date End Date S tatus Acute pyelonephritis N10 10/01/2024 Active Acute kidney failure, unspecified N17.9 10/01/2024 Active Personal history of other mental and behavioral disorders Z86.59 10/01/2024 Active Wedge compression fracture of unspecified thoracic vertebra, subsequent encounter for fracture with routine healing S22.000D 10/01/2024 Active Multiple fractures of ribs, left side, subsequent encounter for fracture with routine healing S22.42XD 10/01/2024 Active Sepsis, unspecified organism A41.9 10/01/2024 Active Retention of urine, unspecified R33.9 10/01/2024 Active Hematuria, unspecified R31.9 10/01/2024 Active Hyperlipidemia, unspecified E78.5 10/01/2024 Active Prediabetes R73.03 10/01/2024 Active Essential (primary) hypertension I10 10/01/2024 Active Atherosclerotic heart disease of [place] coronary artery without angina pectoris I25.10 10/01/2024 Active Pain, unspecified R52 10/01/2024 Act ayaz Urinary tract infection, site not specified N39.0 10/01/2024 Active Constipation, unspecified K59.00 10/01/2024 Active 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 10/01/2024 Active 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 10/01/2024 Active Mild cognitive impairment, so stated G31.84 10/01/2024 Act ayaz Diarrhea, unspecified R19.7 10/29/2024 Active Hypo-osmolality and hyponatremia E87.1 11/07/2024 Active Results Test Value / Unit Interpretation Reference Ran ge Tuberculosis reaction wheal[ 08224-9] Tuberculosis reaction wheal [95665-2] 0 mm NEG Tuberculosis reaction wheal[ 00710-2] Tuberculosis reaction wheal [61236-5] See note TB test Tuberculosis reaction wheal[ 63200-4] Tuberculosis reaction wheal [37878-9] 0 mm NEG Allergies, adverse reactions, alerts Substance Reaction Date Status Type No allergies have been recorded Non Drug Tylenol 10/04/2024 Non Drug Immunizations Vaccine Route Date Status COVID-19 Vaccine Unassigned Route of Administration Completed COVID-19 Vaccine Unassigned Route of Administration Completed COVID-19 Vaccine Unassigned Route of Administration Completed COVID-19 Vaccine Unassigned Route of Administration Completed COVID-19 Vaccine Unassigned Route of Administration Completed Zoster Vaccine Unassigned Route of Administration 09/2012 Completed Influenza Vaccine Unassigned Route of Administration 1 10/11/2021 Completed Medications Medication Instructions Route Dosage Frequency Start Date Stop Date Indications Status Aplisol (tuberculin ppd) 5 tub. unit /0.1 mL solution (Aplisol (tuberculin ppd)) 0.1 ml, intradermal, Once A Day Every 14 Days, Document Lot #, Expiration, and Pool Manager in the Preventive Health Module. intrader mal 1.0 1.0 d 10/16 Active cefuroxime axetil 500 mg tablet (cefuroxime axetil) 500 mg, oral, Every 12 Hours oral 1.0 12.0 h 10/03 Urinary tract infection, site not specified Active lidocaine 5 % adhesive patch,medicate d (lidocaine) 1 patch, topical, Twice A Day - PRN, Place onto skin daily PRN for moderate pain. max 12hr per 24hr period. N.O. Non-: Pharmacological Interventions 1=Warm blanket 2=Re-position 3=Ice pack 4=Warm pack topical 1.0 12.0 h 10/01 Pain, unspecified Active ibuprofen 400 mg tablet (ibuprofen) 400 mg, oral, Every 6 Hours - PRN, For moderate pain N.O. Non-: Pharmacological Interventions 1=Warm blanket 2=Re-position 3=Ice pack 4=Warm pack oral 1.0 6.0 h 11/26 Pain, unspecified Active senna 8.6 mg tablet (senna) 2 tablets, oral, Twice A Day - PRN, N.O. Non-Pharmacologi lorena Interventions 1=Additional fluids 2=Prune Juice 3=Increase exercise oral 1.0 12.0 h 11/26 Constipation , unspecified Active lisinopril 5 mg tablet (lisinopril) 5 mg, oral, Once A Day oral 1.0 1.0 d 10/30 Active tamsulosin 0.4 mg capsule (tamsulosin) 0.4 mg, oral, Once A Day oral 1.0 1.0 d 11/02 Active atorvastatin 40 mg tablet (atorvastatin) 40 mg, oral, At Bedtime oral 1.0 11/26 Hyperlipidem ia, unspecified Active atorvastatin 40 mg tablet (atorvastatin) 40 mg, oral, At Bedtime oral 1.0 10/01 Hyperlipidem ia, unspecified Active acetaminophen 325 mg tablet (acetaminophen ) 650 mg, oral, Every 4 Hours - PRN, Max acetaminophen dose 4,000mg in 24hrs. N.O. Non-: Pharmacological Interventions 1=Warm blanket 2=Re-position 3=Ice pack 4=Warm pack oral 1.0 4.0 h 10/04 Pain, unspecified Active Vitamin D3 (cholecalcifer ol (vitamin d3)) 25 mcg (1,000 unit) tablet (Vitamin D3 (cholecalcifer ol (vitamin d3))) 1,000 unit, oral, Once A Day oral 1.0 1.0 d 11/26 [place]ge compression fracture of unspecified thoracic vertebra, subsequent encounter for fracture with routine healing Active cefaclor 500 mg capsule (cefaclor) 500mg, oral, STAT - Immediately oral 1.0 8.0 h 10/03 Urinary tract infection, site not specified Active cefaclor 500 mg capsule (cefaclor) 500mg, oral, Three Times A Day oral 1.0 8.0 h 10/05 Urinary tract infection, site not specified Active lidocaine 5 % adhesive patch,medicate d (lidocaine) 1 patch, topical, Twice A Day, Apply to back. On for max 12hr per 24hr period. topical 1.0 12.0 h 10/17 Pain, unspecified Active lidocaine 5 % adhesive patch,medicate d (lidocaine) 1 patch, topical, Twice A Day - PRN, Place onto skin daily PRN for moderate pain. max 12hr per 24hr period. N.O. Non-: Pharmacological Interventions 1=Warm blanket 2=Re-position 3=Ice pack 4=Warm pack topical 1.0 12.0 h 10/04 Pain, unspecified Active Cipro (ciprofloxacin hcl) 500 mg tablet (Cipro (ciprofloxacin hcl)) 500 mg, oral, Twice A Day oral 1.0 12.0 h 11/01 Active Cipro (ciprofloxacin hcl) 500 mg tablet (Cipro (ciprofloxacin hcl)) 500 mg, oral, Once - One Time oral 1.0 12.0 h 10/26 Active cephalexin 500 mg capsule (cephalexin) 500 mg, oral, Three Times A Day oral 1.0 8.0 h 10/31 Active Macrobid (nitrofurantoi n monohyd/m-nedra t) 100 mg capsule (Macrobid (nitrofurantoi n monohyd/m-nedra t)) 100 mg, oral, Every 12 Hours, Dx: UTI oral 1.0 12.0 h 11/01 Active cephalexin 500 mg capsule (cephalexin) 500 mg, oral, Three Times A Day oral 1.0 8.0 h 10/27 Active tamsulosin 0.4 mg capsule (tamsulosin) 0.4 mg, oral, At Bedtime oral 1.0 11/26 Active Aplisol (tuberculin ppd) 5 tub. unit /0.1 mL solution (Aplisol (tuberculin ppd)) 0.1 ml, intradermal, Once A Day Every 14 Days, Document Lot #, Expiration, and Pool Manager in the Preventive Health Module. intrader mal 1.0 1.0 d 11/26 Active cefaclor 500 mg capsule (cefaclor) 500mg, oral, STAT - Immediately oral 1.0 11/26 Urinary tract infection, site not specified Active cefaclor 500 mg capsule (cefaclor) 500mg, oral, Three Times A Day oral 1.0 8.0 h 11/26 Urinary tract infection, site not specified Active Macrobid (nitrofurantoi n monohyd/m-nedra t) 100 mg capsule (Macrobid (nitrofurantoi n monohyd/m-nedra t)) 100 mg, oral, Every 12 Hours, Dx: UTI oral 1.0 12.0 h 11/26 Active Vital Signs Date Vital Result Comment 10/01/2024 04:33 PM Temperature 98.2 [degF] Oxygen Saturation 98 % Respiratory Rate 16 /min Heart Rate 97 /min Blood Pressure Systolic 103 mm[Hg] Blood Pressure Diastolic 61 mm[Hg] 10/01/2024 09:42 PM Temperature 98.2 [degF] Oxygen Saturation 93 % Respiratory Rate 18 /min Heart Rate 90 /min Blood Pressure Systolic 120 mm[Hg] Blood Pressure Diastolic 62 mm[Hg] 10/02/2024 12:54 AM Temperature 98 [degF] Oxygen Saturation 91 % Respiratory Rate 20 /min Heart Rate 72 /min Blood Pressure Systolic 132 mm[Hg] Blood Pressure Diastolic 68 mm[Hg] 10/02/2024 05:38 AM Temperature 98 [degF] Oxygen Saturation 94 % Respiratory Rate 18 /min Heart Rate 69 /min Blood Pressure Systolic 123 mm[Hg] Blood Pressure Diastolic 76 mm[Hg] 10/02/2024 08:17 AM Body Height 71 [in_us] 10/02/2024 08:23 AM Temperature 98.2 [degF] Oxygen Saturation 96 % Respiratory Rate 18 /min Heart Rate 68 /min Blood Pressure Systolic 131 mm[Hg] Blood Pressure Diastolic 73 mm[Hg] 10/02/2024 09:25 AM Body Weight 174 [lb_av] Body Mass Index 24.27 kg/m2 10/02/2024 09:26 AM Body Height 71 [in_us] 10/02/2024 01:44 PM Temperature 98.6 [degF] Oxygen Saturation 94 % Respiratory Rate 16 /min Heart Rate 76 /min Blood Pressure Systolic 103 mm[Hg] Blood Pressure Diastolic 54 mm[Hg] 10/02/2024 05:35 PM Temperature 98.7 [degF] Oxygen Saturation 96 % Respiratory Rate 17 /min Heart Rate 61 /min Blood Pressure Systolic 127 mm[Hg] Blood Pressure Diastolic 110 mm[Hg] 10/02/2024 07:09 PM Temperature 98.7 [degF] Oxygen Saturation 92 % Respiratory Rate 16 /min Heart Rate 92 /min Blood Pressure Systolic 142 mm[Hg] Blood Pressure Diastolic 68 mm[Hg] 10/03/2024 09:31 AM Temperature 98 [degF] Oxygen Saturation 93 % Respiratory Rate 16 /min Heart Rate 68 /min Blood Pressure Systolic 132 mm[Hg] Blood Pressure Diastolic 87 mm[Hg] 10/03/2024 09:53 AM Body Weight 174 [lb_av] Body Mass Index 24.27 kg/m2 10/04/2024 08:37 AM Temperature 98.3 [degF] Oxygen Saturation 95 % Respiratory Rate 16 /min Heart Rate 67 /min Blood Pressure Systolic 132 mm[Hg] Blood Pressure Diastolic 71 mm[Hg] 10/04/2024 10:24 AM Body Weight 176 [lb_av] Body Mass Index 24.54 kg/m2 10/05/2024 07:31 AM Temperature 98.7 [degF] Oxygen Saturation 93 % Respiratory Rate 16 /min Heart Rate 65 /min Blood Pressure Systolic 115 mm[Hg] Blood Pressure Diastolic 70 mm[Hg] 10/05/2024 10:14 AM Body Weight 176.6 [lb_av] Body Mass Index 24.63 kg/m2 10/05/2024 04:26 PM Temperature 98.5 [degF] Oxygen Saturation 90 % Respiratory Rate 16 /min Heart Rate 75 /min Blood Pressure Systolic 137 mm[Hg] Blood Pressure Diastolic 71 mm[Hg] 10/06/2024 09:08 AM Temperature 98.3 [degF] Oxygen Saturation 95 % Respiratory Rate 16 /min Heart Rate 61 /min Blood Pressure Systolic 134 mm[Hg] Blood Pressure Diastolic 73 mm[Hg] 10/06/2024 09:14 AM Body Weight 174.8 [lb_av] Body Mass Index 24.38 kg/m2 10/06/2024 05:57 PM Temperature 98.1 [degF] Oxygen Saturation 95 % Respiratory Rate 20 /min Heart Rate 60 /min Blood Pressure Systolic 129 mm[Hg] Blood Pressure Diastolic 70 mm[Hg] 10/07/2024 09:10 AM Temperature 98.1 [degF] Oxygen Saturation 97 % Respiratory Rate 16 /min Heart Rate 67 /min Blood Pressure Systolic 130 mm[Hg] Blood Pressure Diastolic 75 mm[Hg] 10/07/2024 09:54 AM Body Weight 174 [lb_av] Body Mass Index 24.27 kg/m2 10/08/2024 08:16 AM Temperature 98.2 [degF] Oxygen Saturation 96 % Respiratory Rate 16 /min Heart Rate 64 /min Blood Pressure Systolic 159 mm[Hg] Blood Pressure Diastolic 94 mm[Hg] 10/08/2024 11:59 AM Body Weight 175 [lb_av] Body Mass Index 24.4 kg/m2 10/09/2024 10:15 AM Temperature 97.2 [degF] Oxygen Saturation 92 % Respiratory Rate 18 /min Heart Rate 73 /min Blood Pressure Systolic 123 mm[Hg] Blood Pressure Diastolic 68 mm[Hg] 10/10/2024 08:39 AM Temperature 97.3 [degF] Oxygen Saturation 96 % Respiratory Rate 18 /min Heart Rate 70 /min Blood Pressure Systolic 123 mm[Hg] Blood Pressure Diastolic 67 mm[Hg] 10/10/2024 11:28 AM Body Weight 175 [lb_av] Body Mass Index 24.4 kg/m2 10/11/2024 10:23 AM Temperature 97.1 [degF] Oxygen Saturation 95 % Respiratory Rate 18 /min Heart Rate 60 /min Blood Pressure Systolic 104 mm[Hg] Blood Pressure Diastolic 64 mm[Hg] 10/12/2024 08:38 AM Temperature 97.1 [degF] Oxygen Saturation 92 % Respiratory Rate 18 /min Heart Rate 92 /min Blood Pressure Systolic 127 mm[Hg] Blood Pressure Diastolic 70 mm[Hg] 10/12/2024 10:30 AM Body Weight 173.6 [lb_av] Body Mass Index 24.21 kg/m2 10/13/2024 09:30 AM Temperature 98.7 [degF] Oxygen Saturation 95 % Respiratory Rate 16 /min Heart Rate 60 /min Blood Pressure Systolic 137 mm[Hg] Blood Pressure Diastolic 73 mm[Hg] 10/13/2024 09:29 AM Body Weight 176.3 [lb_av] Body Mass Index 24.59 kg/m2 10/14/2024 08:23 AM Temperature 98.5 [degF] Oxygen Saturation 97 % Respiratory Rate 17 /min Heart Rate 59 /min Blood Pressure Systolic 141 mm[Hg] Blood Pressure Diastolic 75 mm[Hg] Body Weight 175.3 [lb_av] Body Mass Index 24.45 kg/m2 10/15/2024 08:27 AM Temperature 98.7 [degF] Oxygen Saturation 94 % Respiratory Rate 16 /min Heart Rate 84 /min Blood Pressure Systolic 135 mm[Hg] Blood Pressure Diastolic 88 mm[Hg] 10/15/2024 09:19 AM Body Weight 176.4 [lb_av] Body Mass Index 24.6 kg/m2 10/16/2024 09:12 AM Temperature 97.2 [degF] Oxygen Saturation 94 % Respiratory Rate 16 /min Heart Rate 59 /min Blood Pressure Systolic 129 mm[Hg] Blood Pressure Diastolic 61 mm[Hg] 10/16/2024 09:13 AM Body Weight 175.7 [lb_av] Body Mass Index 24.5 kg/m2 10/17/2024 08:50 AM Body Weight 174.9 [lb_av] Body Mass Index 24.39 kg/m2 10/17/2024 12:45 PM Temperature 97.3 [degF] Oxygen Saturation 95 % Respiratory Rate 18 /min Heart Rate 62 /min Blood Pressure Systolic 132 mm[Hg] Blood Pressure Diastolic 64 mm[Hg] 10/18/2024 10:17 AM Temperature 98.5 [degF] Oxygen Saturation 96 % Respiratory Rate 16 /min Heart Rate 61 /min Blood Pressure Systolic 120 mm[Hg] Blood Pressure Diastolic 62 mm[Hg] Body Weight 176 [lb_av] Body Mass Index 24.54 kg/m2 10/19/2024 09:04 AM Temperature 98.7 [degF] Oxygen Saturation 95 % Respiratory Rate 20 /min Heart Rate 66 /min Blood Pressure Systolic 141 mm[Hg] Blood Pressure Diastolic 78 mm[Hg] Body Weight 175 [lb_av] Body Mass Index 24.4 kg/m2 10/20/2024 11:07 AM Temperature 98.7 [degF] Oxygen Saturation 96 % Respiratory Rate 17 /min Heart Rate 96 /min Blood Pressure Systolic 108 mm[Hg] Blood Pressure Diastolic 76 mm[Hg] Body Weight 172 [lb_av] Body Mass Index 23.99 kg/m2 10/21/2024 09:04 AM Temperature 98.7 [degF] Oxygen Saturation 95 % Respiratory Rate 18 /min Heart Rate 72 /min Blood Pressure Systolic 123 mm[Hg] Blood Pressure Diastolic 77 mm[Hg] 10/21/2024 10:07 AM Body Weight 173.4 [lb_av] Body Mass Index 24.18 kg/m2 10/22/2024 07:43 AM Temperature 97.2 [degF] Oxygen Saturation 96 % Respiratory Rate 18 /min Heart Rate 73 /min Blood Pressure Systolic 151 mm[Hg] Blood Pressure Diastolic 84 mm[Hg] 10/22/2024 10:09 AM Body Weight 172.8 [lb_av] Body Mass Index 24.1 kg/m2 10/23/2024 07:11 AM Temperature 97.8 [degF] 10/23/2024 07:10 AM Oxygen Saturation 90 % Respiratory Rate 18 /min Heart Rate 86 /min Blood Pressure Systolic 108 mm[Hg] Blood Pressure Diastolic 74 mm[Hg] 10/23/2024 10:09 AM Body Weight 171.8 [lb_av] Body Mass Index 23.96 kg/m2 10/24/2024 08:44 AM Temperature 98.2 [degF] Oxygen Saturation 96 % Respiratory Rate 16 /min Heart Rate 57 /min Blood Pressure Systolic 119 mm[Hg] Blood Pressure Diastolic 67 mm[Hg] 10/24/2024 11:09 AM Body Weight 173 [lb_av] Body Mass Index 24.13 kg/m2 10/24/2024 01:52 PM Temperature 98.2 [degF] Oxygen Saturation 96 % Respiratory Rate 18 /min Heart Rate 76 /min Blood Pressure Systolic 162 mm[Hg] Blood Pressure Diastolic 81 mm[Hg] 10/25/2024 07:29 AM Temperature 98.5 [degF] Oxygen Saturation 97 % Respiratory Rate 16 /min Heart Rate 64 /min Blood Pressure Systolic 122 mm[Hg] Blood Pressure Diastolic 64 mm[Hg] 10/25/2024 10:19 AM Body Weight 173.4 [lb_av] Body Mass Index 24.18 kg/m2 10/25/2024 12:41 PM Heart Rate 55 /min Blood Pressure Systolic 119 mm[Hg] Blood Pressure Diastolic 54 mm[Hg] 10/26/2024 07:53 AM Temperature 98.1 [degF] Oxygen Saturation 99 % Respiratory Rate 18 /min Heart Rate 79 /min Blood Pressure Systolic 136 mm[Hg] Blood Pressure Diastolic 68 mm[Hg] 10/26/2024 10:40 AM Body Weight 172 [lb_av] Body Mass Index 23.99 kg/m2 10/27/2024 07:48 AM Temperature 98.5 [degF] Oxygen Saturation 94 % Respiratory Rate 16 /min Heart Rate 59 /min Blood Pressure Systolic 121 mm[Hg] Blood Pressure Diastolic 74 mm[Hg] 10/27/2024 09:17 AM Body Weight 173.6 [lb_av] Body Mass Index 24.21 kg/m2 10/28/2024 08:48 AM Body Weight 174.2 [lb_av] Body Mass Index 24.29 kg/m2 10/28/2024 08:39 AM Temperature 98.5 [degF] Oxygen Saturation 95 % Respiratory Rate 18 /min Heart Rate 62 /min Blood Pressure Systolic 132 mm[Hg] Blood Pressure Diastolic 77 mm[Hg] 10/29/2024 10:53 AM Body Weight 168.8 [lb_av] Body Mass Index 23.54 kg/m2 10/29/2024 10:40 AM Temperature 98.7 [degF] Oxygen Saturation 94 % Respiratory Rate 16 /min Heart Rate 91 /min Blood Pressure Systolic 120 mm[Hg] Blood Pressure Diastolic 70 mm[Hg] 10/30/2024 09:18 AM Temperature 97.8 [degF] Oxygen Saturation 93 % Respiratory Rate 17 /min Heart Rate 73 /min Blood Pressure Systolic 115 mm[Hg] Blood Pressure Diastolic 59 mm[Hg] 10/30/2024 09:17 AM Body Weight 168 [lb_av] Body Mass Index 23.43 kg/m2 10/31/2024 08:06 AM Temperature 98.6 [degF] Oxygen Saturation 93 % Respiratory Rate 16 /min Heart Rate 73 /min Blood Pressure Systolic 128 mm[Hg] Blood Pressure Diastolic 62 mm[Hg] 10/31/2024 10:13 AM Body Weight 168.6 [lb_av] Body Mass Index 23.51 kg/m2 11/01/2024 08:48 AM Temperature 98.1 [degF] Oxygen Saturation 94 % Respiratory Rate 17 /min Heart Rate 98 /min Blood Pressure Systolic 117 mm[Hg] Blood Pressure Diastolic 72 mm[Hg] 11/01/2024 10:37 AM Body Weight 171 [lb_av] Body Mass Index 23.85 kg/m2 11/02/2024 10:24 AM Temperature 98 [degF] Oxygen Saturation 95 % Respiratory Rate 18 /min Heart Rate 92 /min Blood Pressure Systolic 124 mm[Hg] Blood Pressure Diastolic 77 mm[Hg] 11/02/2024 11:47 AM Body Weight 170 [lb_av] Body Mass Index 23.71 kg/m2 11/03/2024 08:04 AM Temperature 98.2 [degF] Oxygen Saturation 93 % Respiratory Rate 16 /min Heart Rate 65 /min Blood Pressure Systolic 131 mm[Hg] Blood Pressure Diastolic 78 mm[Hg] 11/03/2024 10:17 AM Body Weight 167.4 [lb_av] Body Mass Index 23.35 kg/m2 11/04/2024 07:11 AM Temperature 98.5 [degF] Oxygen Saturation 95 % Respiratory Rate 16 /min Heart Rate 66 /min Blood Pressure Systolic 127 mm[Hg] Blood Pressure Diastolic 71 mm[Hg] 11/04/2024 10:53 AM Body Weight 167 [lb_av] Body Mass Index 23.29 kg/m2 11/05/2024 07:51 AM Temperature 98.2 [degF] Oxygen Saturation 96 % Respiratory Rate 16 /min Heart Rate 69 /min Blood Pressure Systolic 142 mm[Hg] Blood Pressure Diastolic 83 mm[Hg] 11/05/2024 08:52 AM Body Weight 168 [lb_av] Body Mass Index 23.43 kg/m2 11/06/2024 07:33 AM Temperature 98.1 [degF] Oxygen Saturation 96 % Respiratory Rate 18 /min Heart Rate 78 /min Blood Pressure Systolic 135 mm[Hg] Blood Pressure Diastolic 61 mm[Hg] 11/06/2024 08:01 AM Body Weight 169 [lb_av] Body Mass Index 23.57 kg/m2 11/07/2024 07:43 AM Temperature 98.7 [degF] Oxygen Saturation 92 % Respiratory Rate 16 /min Heart Rate 61 /min Blood Pressure Systolic 119 mm[Hg] Blood Pressure Diastolic 60 mm[Hg] 11/07/2024 09:53 AM Body Weight 169 [lb_av] Body Mass Index 23.57 kg/m2 11/08/2024 07:46 AM Temperature 97.7 [degF] Oxygen Saturation 96 % Respiratory Rate 16 /min Heart Rate 58 /min Blood Pressure Systolic 142 mm[Hg] Blood Pressure Diastolic 73 mm[Hg] 11/08/2024 07:45 AM Body Weight 170 [lb_av] Body Mass Index 23.71 kg/m2 11/09/2024 07:55 AM Body Weight 169.6 [lb_av] Body Mass Index 23.65 kg/m2 11/09/2024 11:46 AM Temperature 97.9 [degF] Oxygen Saturation 96 % Respiratory Rate 17 /min Heart Rate 68 /min Blood Pressure Systolic 118 mm[Hg] Blood Pressure Diastolic 78 mm[Hg] 11/10/2024 09:16 AM Temperature 98.7 [degF] Oxygen Saturation 91 % Respiratory Rate 16 /min Heart Rate 63 /min Blood Pressure Systolic 114 mm[Hg] Blood Pressure Diastolic 61 mm[Hg] 11/10/2024 10:00 AM Body Weight 169.4 [lb_av] Body Mass Index 23.62 kg/m2 11/11/2024 08:15 AM Temperature 98.9 [degF] Oxygen Saturation 95 % Respiratory Rate 12 /min Heart Rate 66 /min Blood Pressure Systolic 154 mm[Hg] Blood Pressure Diastolic 73 mm[Hg] 11/11/2024 09:15 AM Body Weight 170.2 [lb_av] Body Mass Index 23.74 kg/m2 11/12/2024 07:09 AM Temperature 97.5 [degF] Oxygen Saturation 92 % Respiratory Rate 16 /min Heart Rate 67 /min Blood Pressure Systolic 142 mm[Hg] Blood Pressure Diastolic 71 mm[Hg] 11/12/2024 08:20 AM Body Weight 171.4 [lb_av] Body Mass Index 23.9 kg/m2 11/13/2024 07:34 AM Temperature 97.4 [degF] Oxygen Saturation 94 % Respiratory Rate 16 /min Heart Rate 73 /min Blood Pressure Systolic 129 mm[Hg] Blood Pressure Diastolic 73 mm[Hg] Body Weight 170.6 [lb_av] Body Mass Index 23.79 kg/m2 11/14/2024 07:57 AM Temperature 97.3 [degF] Oxygen Saturation 92 % Respiratory Rate 16 /min Heart Rate 65 /min Blood Pressure Systolic 132 mm[Hg] Blood Pressure Diastolic 69 mm[Hg] Body Weight 170 [lb_av] Body Mass Index 23.71 kg/m2 11/15/2024 08:36 AM Temperature 98 [degF] Oxygen Saturation 97 % Respiratory Rate 18 /min Heart Rate 100 /min Blood Pressure Systolic 147 mm[Hg] Blood Pressure Diastolic 88 mm[Hg] 11/15/2024 08:35 AM Body Weight 170.8 [lb_av] Body Mass Index 23.82 kg/m2 11/16/2024 09:20 AM Temperature 99.1 [degF] Oxygen Saturation 94 % Respiratory Rate 17 /min Heart Rate 78 /min Blood Pressure Systolic 130 mm[Hg] Blood Pressure Diastolic 83 mm[Hg] Body Weight 172 [lb_av] Body Mass Index 23.99 kg/m2 11/17/2024 09:13 AM Temperature 98.9 [degF] Oxygen Saturation 95 % Respiratory Rate 17 /min Heart Rate 68 /min Blood Pressure Systolic 92 mm[Hg] Blood Pressure Diastolic 60 mm[Hg] 11/17/2024 12:38 PM Body Weight 172 [lb_av] Body Mass Index 23.99 kg/m2 11/18/2024 10:02 AM Body Weight 166.6 [lb_av] Body Mass Index 23.23 kg/m2 11/18/2024 09:33 AM Temperature 98.2 [degF] Oxygen Saturation 96 % Respiratory Rate 19 /min Heart Rate 72 /min Blood Pressure Systolic 138 mm[Hg] Blood Pressure Diastolic 63 mm[Hg] 11/19/2024 07:50 AM Temperature 98.3 [degF] Oxygen Saturation 96 % Respiratory Rate 18 /min Heart Rate 72 /min Blood Pressure Systolic 118 mm[Hg] Blood Pressure Diastolic 69 mm[Hg] 11/19/2024 09:51 AM Body Weight 167.2 [lb_av] Body Mass Index 23.32 kg/m2 11/20/2024 07:51 AM Temperature 97.7 [degF] Oxygen Saturation 97 % Respiratory Rate 16 /min Heart Rate 71 /min Blood Pressure Systolic 133 mm[Hg] Blood Pressure Diastolic 79 mm[Hg] 11/20/2024 10:46 AM Body Weight 166.4 [lb_av] Body Mass Index 23.21 kg/m2 11/21/2024 08:13 AM Temperature 97.9 [degF] Oxygen Saturation 96 % Respiratory Rate 16 /min Heart Rate 53 /min Blood Pressure Systolic 138 mm[Hg] Blood Pressure Diastolic 65 mm[Hg] Body Weight 166.1 [lb_av] Body Mass Index 23.16 kg/m2 11/22/2024 08:25 AM Temperature 98.5 [degF] Oxygen Saturation 95 % Respiratory Rate 18 /min Heart Rate 89 /min Blood Pressure Systolic 122 mm[Hg] Blood Pressure Diastolic 67 mm[Hg] 11/22/2024 09:08 AM Body Weight 167.2 [lb_av] Body Mass Index 23.32 kg/m2 11/23/2024 07:45 AM Temperature 98.5 [degF] Oxygen Saturation 96 % Respiratory Rate 16 /min Heart Rate 66 /min Blood Pressure Systolic 135 mm[Hg] Blood Pressure Diastolic 73 mm[Hg] 11/23/2024 09:17 AM Body Weight 164.6 [lb_av] Body Mass Index 22.95 kg/m2 11/24/2024 07:39 AM Temperature 98.3 [degF] Oxygen Saturation 98 % Respiratory Rate 18 /min Heart Rate 88 /min Blood Pressure Systolic 115 mm[Hg] Blood Pressure Diastolic 71 mm[Hg] 11/25/2024 07:56 AM Temperature 98.5 [degF] Oxygen Saturation 95 % Respiratory Rate 14 /min Heart Rate 83 /min Blood Pressure Systolic 94 mm[Hg] Blood Pressure Diastolic 62 mm[Hg] 11/25/2024 10:03 AM Body Weight 165.4 [lb_av] Body Mass Index 23.07 kg/m2 11/26/2024 09:20 AM Body Weight 166.2 [lb_av] Body Mass Index 23.18 kg/m2 11/26/2024 10:38 AM Temperature 98.3 [degF] Oxygen Saturation 92 % Respiratory Rate 16 /min Heart Rate 95 /min Blood Pressure Systolic 112 mm[Hg] Blood Pressure Diastolic 76 mm[Hg] Social History No smoking Hx information available Encounters Type CPT Code Date Location Provider Indication s encounter report 10/01/2024 10:45 AM Komal Tay MD 01 encounter report 10/01/2024 02:5 5 PM - 11/26/2024 11:13 AM Sakina Tay MD Advance Directives Directive Description Verification Date Supporting Document(s) Intubation Resuscitation
--- OUTSIDE RECORDS SUMMARY | 2025-03-05 11:48 | XMS_ITS | Encounter Summary ---
Author Organization [place] Address [address] [facility] [place] [address] Care Team Providers Care Fuel Agent Name Role Phone Zen Hanley MD Primary Care Provider + [phone] Vlad Jerez-Amy Unavailable [phone] Vlad Jerez PA-C Unavailable [phone] Kandace Sanders PA-C Unavailable [phone] Reason for Visit * Reason Onset Date Comments Appointment 11/29/2024 Encounter Details Date Type Department Care Team (Late st Contact Info) Description 11/29/2024 Telephone [facility] [place] [address] [place] [address] None Appointment Social History Tobacco Use Types Packs/Day Years [...] in an abandoned building, in an overnight prison, or couch-surfing.) Yes 09/26/2024 Are you worried [...] on file 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 Gagnon at [facility] location. Action Taken: Message routed to: [facility] [place] [facility] Travel Screening: Not Applicable Date of Service: documented in this encounter Plan of Treatment Not on file documented as of this encounter Visit Diagnoses Not on filedocumented in this encounter Care Teams Fuel Agent Relationship Specialty Start Date End Date Zen Hanley MD [address] [place] [id number] PCP - General FAMILY MEDICINE-HOSPICE AND PALLIATIVE MEDICINE 09/26/24 Vlad Jerez PA-C [address] [place] [address] Physician Master Ocean Yacht Physician Master Ocean Yacht - Medical 10/03/24 Vlad Jerez PA-C [address] [place] [address] Physician Master Ocean Yacht Physician Master Ocean Yacht - Medical 10/03/24 Kandace Sanders PA-C [facility] [address] Assigned Surgical Provider 12/26/24 documented as of this encounter
[2025-03-05 12:28] LABS: Appearance Urine Turbid (Clear)
--- OUTSIDE RECORDS SUMMARY | 2025-03-06 00:41 | XMS_ITS | Encounter Summary ---
Author Organization [place] Address [address] [facility] [place] [address] Care Team Providers Care Artificial Intelligence Specialist Name Role Phone Zen Hanley MD Primary Care Provider + [phone] Vlad Jerez-Amy Unavailable [phone] Vlad Jerez PA-C Unavailable [phone] Kandace Sanders PA-C Unavailable [phone] Reason for Visit * Reason Onset Date Comments Appointment 11/29/2024 Encounter Details Date Type Department Care Team (Late st Contact Info) Description 11/29/2024 Telephone [facility] [place] [address] [place] [address] None Appointment Social History Tobacco [...] in an abandoned building, in an overnight snf, or couch-surfing.) Yes 09/26/2024 Are you worried [...] on file 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 Gagnon at [facility] location. Action Taken: Message routed to: [facility] [place] [facility] Travel Screening: Not Applicable Date of Service: documented in this encounter Plan of Treatment Not on file documented as of this encounter Visit Diagnoses Not on filedocumented in this encounter Care Teams Artificial Intelligence Specialist Relationship Specialty Start Date End Date Zen Hanley MD [address] [place] [id number] PCP - General FAMILY MEDICINE-HOSPICE AND PALLIATIVE MEDICINE 09/26/24 Vlad Jerez PA-C [address] [place] [address] Physician Elastic Attacher Coverstitch Physician Elastic Attacher Coverstitch - Medical 10/03/24 Vlad Jerez PA-C [address] [place] [address] Physician Elastic Attacher Coverstitch Physician Elastic Attacher Coverstitch - Medical 10/03/24 Kandace Sanders PA-C [facility] [address] Assigned Surgical Provider 12/26/24 documented as of this encounter
--- OUTSIDE RECORDS SUMMARY | 2025-03-06 00:41 | XMS_ITS | Clinical Summary ---
Author Organization [facility] [facility] Address [address] [place] [address] Care Team Providers Care Intelligence Operations Name Role Phone Sherif Valladares MD Primary Care Provider [facility] [place] Unavailable [phone] Allergies Active Allergy Reactions Criticality Noted Date [...] suffered some fractures. 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 [phone] Ami Escobar NP 01/16/2025 Home Care Visit [facility] [address] [place] [address] Zen Paige RN SN - HOSPICE NON-ADMIT 01/07/2025 Transcribe Orders [facility] [address] [place] [address] [facility] Immunizations Immunization Administration [...] Medical History Relation Name Comments Cancer-colon Brother Cutler Coronary artery disease Brother Alannah Sten ts Diabetes Father Glucose intoler ance Heart Disease Father [place] Arthritis Mother Dementia Mother Cancer Other Remote relative s- cousins w prostate cancer Cancer-colon Sister Coronary artery disease Sister Sten ts Hyperlipidemia Sister Skin cancer Sister Asthma Son Relation Name Status Comments Brother Cutler Alive Father (Age 68) Mother (Age 96) [...] on file 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 - 02/12/2025 10:22 AM CDT The [...] acute congestive heart failure. us Ami Escobar DIRECTOR CAREER SERVICES SEND OUTS Final Resul t [facility] [address] [place] [address] * (ABNORMAL) BASIC METABOLIC PANEL (02/12/2025 8:00 AM CDT) SODIUM 141 136 - 145 mmol/L 02/12/2025 10:17 AM [facility] POTASSIUM 3.9 3.5 - 5.1 mmol/L 02/12/2025 10:17 AM [facility] CHLORIDE 103 98 - 107 mmol/L 02/12/2025 10:17 AM [facility] CO2,TOTAL 28 22 - 29 mmol/L 02/12/2025 10:17 AM [facility] ANION GAP 10 5 - 18 02/12/2025 10:17 AM [facility] GLUCOSE 86 70 - 99 mg/dL 02/12/2025 10:17 AM [facility] CALCIUM 9.7 8.8 - 10.4 mg/dL 02/12/2025 10:17 AM [facility] Comment: Reference ranges for this test were updated on 07/10/2024 to reflect our healthy population more accurately. Reference range changes are not retroactively applied to results, but previous results using the same methodology can be interpreted in the context of the new reference range. BUN 16 8 - 23 mg/dL 02/12/2025 10:17 AM [facility] CREATININE 0.85 0.70 - 1.20 mg/dL 02/12/2025 10:17 AM [facility] BUN/CREAT RATIO 19 10 - 20 10:17 AM [facility] eGFR 84(L) >90 mL/min/1.7 3m2 02/12/2025 10:17 AM [facility] Comment:As of 2021, eG FR is calculated by the CKD-EPI creatinine equation without race adjustment. eGFR can be influenced by muscle mass, exercise, and diet. The reported eGFR is an estimation only and is only applicable if the renal function is stable. Blood BLOOD SPECIMEN / Unknown Venipuncture / Unknown 02/12/2025 8:00 AM CDT 02/12/2025 9:37 AM CDT us Ami Escobar DIRECTOR CAREER SERVICES CHEMISTRY Final Resul t [facility] [address] [place] [address] from Last 3 Months Insurance [facility] UC[employer] MEDICARE ADVANTAGE MEDICARE PART A HB ONLY MEDICARE PART B HB ONLY Advance Directives Documents on File Type Date Recorded Patient Inspector Floor Expl anation POLST 12/28/2024 POLST 10/11/2024 2:09 PM POLST dated 10/04/2024 Healthcare Directive 01/21/2012 1:05 PM HE ALTH CARE DIRECTIVE, [facility], 03/01/11 * Full Code (Latest Code Status on File) Date Activated Date Inactivated Comments 11/13/2009 7:10 AM 11/14/2009 2:19 PM Care Teams Intelligence Operations Relationship Specialty Start Date End Date Sherif Valladares MD [address] [place] [address] PCP - General Family Practice 10/02/[address] [place] [address] 01/07/25
--- OUTSIDE RECORDS SUMMARY | 2025-03-06 00:41 | XMS_ITS | Encounter Summary ---
Author Organization [place] Address [address] [place] [address] Care Team Providers Care Instrument Mechanic Weapons System Name Role Phone Zen Hanley MD Primary Care Provider + [phone] Vlad Jerez-C Unavailable [phone] Vlad Jerez PA-C Unavailable [phone] Kandace Sanders PA-C Unavailable [phone] Reason for Visit * Reason Onset Date Comments Call Back 12/25/2024 Encounter Details Date Type Department Care Team (Late st Contact Info) Description 12/25/2024 Telephone [facility] [place] [address] [place] [address] Aime Gagnon MD [address] [place] [address] Call Back Social History Tobacco [...] in an abandoned building, in an overnight long term, or couch-surfing.) Yes 09/26/2024 Are you worried [...] on file 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 All questions answered. ARBEN Diop Creative Services Manager Urology [phone] * Telephone Encounter - Payal Bojorquez - 12/25/2024 8:46 AM CDT [facility] Call Center Phone Message May a detailed [...] on filedocumented in this encounter Care Teams Instrument Mechanic Weapons System Relationship Specialty Start Date End Date Zen Hanley MD [address] [place] [address] PCP - General FAMILY MEDICINE-HOSPICE AND PALLIATIVE MEDICINE 09/26/24 Vlad Jerez PA-C [address] [place] [address] Physician Engine Repairer Service Physician Engine Repairer Service - Medical 10/03/24 Vlad Jerez PA-C [address] [place] [address] Physician Engine Repairer Service Physician Engine Repairer Service - Medical 10/03/24 Kandace Sanders PA-C [address] [facility] [address] [place] [address] Assigned Surgical Provider 12/26/24 documented as of this encounter
--- OUTSIDE RECORDS SUMMARY | 2025-03-06 00:41 | XMS_ITS | Clinical Summary ---
Author Organization [place] Address [address] [place] [address] Care Team Providers Care Investments Manager Name Role Phone Zen Hanley MD Primary Care Provider + [phone] Vlad Jerez PA-C Unavailable [phone] Vlad Jerez PA-C Unavailable [phone] Kandace Sanders PA-C Unavailable Allergies Active Allergy Reactions Criticality Noted Date Comments Acetaminophen Unknown,Headache,Jairo se a,Nausea and Vomiting 06/03/2008 Per [place] records. 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 Gender Identity Not on file Sexual Orientation Not on file Last Filed Vital Signs Vital Sign Reading Time Taken Comments Blood Pressure 118/56 11/28/2024 2:13 PM CDT Pulse 73 11/28/2024 2:13 PM CDT Temperature 36.7 C (98.1 F) 11/28/2024 2:13 PM CDT Respiratory Rate 18 10/01/2024 8:25 AM BIOCHEMISTRY TECHNICIAN Oxygen Saturation 93% 10/01/2024 8:25 AM BIOCHEMISTRY TECHNICIAN Inhaled Oxygen Concentration - - Weight 82.8 kg (182 lb 8 oz) 09/27/2024 2:33 PM BIOCHEMISTRY TECHNICIAN Height 180.3 cm (5' 11) 09/26/2024 4:06 PM BIOCHEMISTRY TECHNICIAN Body Mass Index 25.45 09/26/2024 4:06 PM BIOCHEMISTRY TECHNICIAN Plan of Treatment Health Maintenance Due Date [...] Advance Directives For more information, please contact: [phone] * No CPR- Do NOT Intubate (Latest [...] (patient dec ision maker unavailable) Care Teams Investments Manager Relationship Specialty Start Date End Date Zen Hanley MD [address] [place] [address] PCP - General FAMILY MEDICINE-HOSPICE AND PALLIATIVE MEDICINE 09/26/24 Vlad Jerez PA-C [address] [place] [address] Physician Air Drill Operator Physician Air Drill Operator - Medical 10/03/24 Vlad Jerez PA-C [address] [place] [address] Physician Air Drill Operator Physician Air Drill Operator - Medical 10/03/24 Kandace Sanders PA-C [address] [place] [address] [address] [place] [address] Assigned Surgical Provider 12/26/24
== END 2025-03-05 11:46 | disposition home or self-care (01) ==
LOC: NPINS 11:45
PROVIDERS: PCP Family Medicine; Visit Provider Nurse Practitioner Gerontology
DX: R29.6 Repeated falls (principal); N39.0 Urinary tract infection, site not specified; Z87.440 Personal history of urinary (tract) infections
CPT/HCPCS: 81001; 81003; 87086